=== PATIENT | female | born 1950 | race Caucasian/White ===

== ENCOUNTER 2018-12-20 15:01 | Inpatient (IN) ==
[2018-12-20] MEDS ORDERED: Morphine Inj 4 MG/ML Vial IV.PUSH ONE (15:27)
--- NOTE | 2018-12-20 15:41 | ED ---
HPI General Chief Complaint: Abdominal Pain Stated Complaint: ABD Pain Time Seen by Provider: 12/20/18 15:23 Source: patient Mode of arrival: ambulatory Limitations: no limitations History of Present Illness HPI narrative: patient is a [facility] patient for her advanced chf. patinet c/o abd pain and wants to get evaluated for it, described as diffuse abd , 8/10, nonrad, ongoing for 3 days and not improving. patient also c/o sob/and worsening swelling to nadir LE and abdomen. patient also has an indwelling walton in place. Primary CARE Dr. 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 Joaquin [facility] Cardiothoracic surgeon Dr. Duvall Past medical history significant for AAA hypertension CHF COPD and renal failure MD complaint: Reports abdominal pain Onset (ago): day(s) Pain Consistency: constant Location: Reports diffuse Severity: moderate Severity scale (1-10): 8 Quality: Reports sharp Radiation: Reports none Migration to: Reports no migration Relieving factors: nothing Exacerbating factors: nothing Associated symptoms: Reports denies other symptoms Related Data Allergies Allergy/AdvReac Type Severity Reaction Status Date / Time penicillin G Allergy Severe THROAT Unverified 06/20/17 14:54 CLOSES Review of Systems ROS: all other systems reviewed are negative [facility] Medical History Medical History CHF (congestive heart failure) (Acute) COPD (chronic obstructive pulmonary disease) (Acute) HTN (hypertension) (Acute) Renal failure (Acute) Surgical History Surgical History H/O tubal ligation (Acute) Social History Social History Substance History: No History of Abuse Second Hand Smoke Exposure: No Smoking Status: Former smoker Tobacco Type: Cigarettes How Often Do You Have a Drink Containing Alcohol: Never Recent Travel in [facility] within the Last 8 Weeks: No Recent Out of Country Travel within the Last 8 Weeks: No Immunization History Tetanus Immunization: <[address] [facility] Head: normocephalic and atraumatic Nose: no nasal discharge and no epistaxis Mouth: moist mucous membranes Eyes Sclera: normal sclerae Pupils: PERRL Neck Neck: trachea midline and no JVD Resp Effort & Inspection: able to speak in complete sentences, tachypneic and no use of accessory muscles Auscultation: crackles (bibasilarly approx [address] lung blanco) bilaterally Cardio Jugular venous pressure: JVD Rate: tachycardic Rhythm: regular rhythm Heart Sounds: no murmurs GI Inspection: non-distended Palpation: soft, no hepatosplenomegaly and nontender Skin General: dry skin (warm) Neuro General: alert and awake Cranial Nerves: other Speech: speech normal Motor: no movement abnormalities noted Extrem General: normal to inspection, no clubbing, no cyanosis and edema (pitting edema extending up to abdomen) Laterality: bilaterally Psych Mood: congruent mood Affect: normal affect Judgment: judgment good Course Initial Documented Vital Signs Temperature 98.4 F 12/20/18 15:11 Pulse Rate 112 H 12/20/18 15:11 Respiratory Rate 36 H 12/20/18 15:11 Blood Pressure 175/106 H 12/20/18 15:11 Last Documented Vital Signs Temperature 98.4 F 12/20/18 15:11 Pulse Rate 112 H 12/20/18 15:11 Respiratory Rate 36 H 12/20/18 15:11 Blood Pressure 175/106 H 12/20/18 15:11 Medical Decision Making MDM Narrative Medical decision making narrative: Although patient is on hospice, the patient does not have any DO NOT RESUSCITATE orders in place. As a matter of fact when point-blank asked if her heart stops or refers she stops breathing what she would like us to do patient stated that she wants full resuscitation performed that includes chest compressions intubation providing ACLS drugs etc. So according to this the patient is CODE STATUS is full The patient has been advised, that her AAA has increased in size by 3 cm over the past 2 years. Leukocytosis of 13,000 with a 90% neutrophilia, no anemia normal platelet count Coagulation profile is within normal limits Hyperglycemia of 204 Normal electrolytes. Prerenal azotemia with a BUN of 30 creatinine 1.96.... Normal lipase GFR of 58 Beta natruretic peptide 810 Troponin elevation of 0.24 consistent with likely cardiomyopathy UA consistent with a UTI CT abdomen and pelvis study read by radiologist few scattered sigmoid diverticula without radiographic evidence of diverticulitis. Probable panniculitis but stable fat-containing periumbilical hernias. A 3 mm increase in size of infrarenal saccular AAA when compared to July 2017 now measuring 4.7 cm Medical Screen Exam Complete: Yes Emergency Medical Condition: Yes Lab Data Result diagrams: 12/20/18 15:40 12/20/18 15:40 Lab Results 12/20/18 12/20/18 12/20/18 Range/Units 15:40 15:40 15:40 WBC 13.0 H (4.0-11.0) th/mm3 RBC 4.93 (4.00-5.30) mil/mm3 Hgb 13.3 (11.6-15.3) gm/dL Hct 41.8 (35.0-46.0) % MCV 85.0 (80.0-100.0) fL MCH 26.9 L (27.0-34.0) pg MCHC 31.7 L (32.0-36.0) % RDW 22.2 H (11.6-17.2) % Plt Count 194 (150-450) th/mm3 MPV 7.4 (7.0-11.0) fL Prelim Diff (Auto) Slide review pending Neut % (Auto) 89.6 H (16.0-70.0) % Lymph % (Auto) 5.5 L (9.0-44.0) % Cocke % (Auto) 4.1 (0.0-8.0) % Eos % (Auto) 0.5 (0.0-4.0) % Baso % (Auto) 0.3 (0.0-2.0) % Neut # (Auto) 11.7 H (1.8-7.7) th/mm3 Lymph # (Auto) 0.7 L (1.0-4.8) th/mm3 Cocke # (Auto) 0.5 (0.0-0.9) th/mm3 Eos # (Auto) 0.1 (0.0-0.4) th/mm3 Baso # (Auto) 0.0 (0.0-0.2) th/mm3 WBC Differential Manual diff final Seg Neuts % (Manual) 86 H (16-70) % Band Neuts % (Manual) 3 (0-6) % Lymphocytes % (Manual) 7 L (9-44) % Monocytes % (Manual) 3 (0-8) % Metamyelocytes % (Man) 1 (0-1) % Abs Neuts (Manual) 11.7 H (1.8-7.7) th/mm3 Nucleated RBCs/100 WBC 1 H (0-0) /100 WBC Differential Comment . Toxic Granulation 1+ H (None) Platelet Estimate Normal (Normal) Platelet Morphology Normal (Normal) Basophilic Stippling Faint H (None) Spherocytes Occ H (None) Ovalocytes 1+ H (None) Keratocytes Occ H (None) PT (9.8-11.6) sec INR Ratio APTT (23.4-31.7) sec Sodium 141 (136-145) meq/L Potassium 4.1 (3.5-5.1) meq/L Chloride 101 (98-107) meq/L Carbon Dioxide 35.0 H (21.0-32.0) meq/L Anion Gap 5 (5-15) meq/L BUN 30 H (7-18) mg/dL Creatinine 0.96 (0.50-1.00) mg/dL Estimated GFR 58 L (>89) mL/min Random Glucose 204 H (74-106) mg/dL Calcium 7.7 L (8.5-10.1) mg/dL Total Bilirubin 0.5 (0.2-1.0) mg/dL AST 29 (15-37) U/L ALT 41 (10-53) U/L Alkaline Phosphatase 84 (45-117) U/L Troponin I 0.24 H (0.02-0.05) ng/mL B-Natriuretic Peptide (0-100) pg/mL Total Protein 6.2 L (6.4-8.2) g/dL Albumin 3.0 L (3.4-5.0) g/dL Lipase 150 (73-393) U/L Urine Color Brittaney (Yellw/Straw) Urine Clarity Cloudy H (Clear) Urine pH 6.0 (5.0-8.5) Ur Specific [place] 1.019 (1.002-1.035) Urine Protein 100 H (Neg-Trace) mg/dL Urine Glucose (UA) Negative (Negative) mg/dL Urine Ketones Negative (Negative) mg/dL Urine Occult Blood Large H (Negative) Urine Nitrate Negative (Negative) Urine Bilirubin Negative (Negative) Urine Urobilinogen 2.0 H (Less than 2) mg/dL Ur Leukocyte Esterase Large H (Negative) Urine RBC (0-3) /hpf Urine WBC (0-5) /hpf Urine WBC Clumps Many H (None) Ur Squamous Epith Cells 1 (0-5) /hpf Urine Bacteria Few H (None) /hpf Urine Mucus Few H (Occasional) /lpf Micro UA Comment Cath-culture ind Ur Microscopic Review Not Reportable Urine Culture Comments Cath-cult indicated 12/20/18 12/20/18 Range/Units 16:35 16:35 WBC (4.0-11.0) th/mm3 RBC (4.00-5.30) mil/mm3 Hgb (11.6-15.3) gm/dL Hct (35.0-46.0) % MCV (80.0-100.0) fL MCH (27.0-34.0) pg MCHC (32.0-36.0) % RDW (11.6-17.2) % Plt Count (150-450) th/mm3 MPV (7.0-11.0) fL Prelim Diff (Auto) Neut % (Auto) (16.0-70.0) % Lymph % (Auto) (9.0-44.0) % Cocke % (Auto) (0.0-8.0) % Eos % (Auto) (0.0-4.0) % Baso % (Auto) (0.0-2.0) % Neut # (Auto) (1.8-7.7) th/mm3 Lymph # (Auto) (1.0-4.8) th/mm3 Cocke # (Auto) (0.0-0.9) th/mm3 Eos # (Auto) (0.0-0.4) th/mm3 Baso # (Auto) (0.0-0.2) th/mm3 WBC Differential Seg Neuts % (Manual) (16-70) % Band Neuts % (Manual) (0-6) % Lymphocytes % (Manual) (9-44) % Monocytes % (Manual) (0-8) % Metamyelocytes % (Man) (0-1) % Abs Neuts (Manual) (1.8-7.7) th/mm3 Nucleated RBCs/100 WBC (0-0) /100 WBC Differential Comment Toxic Granulation (None) Platelet Estimate (Normal) Platelet Morphology (Normal) Basophilic Stippling (None) Spherocytes (None) Ovalocytes (None) Keratocytes (None) PT 10.7 (9.8-11.6) sec INR 1.1 Ratio APTT 24.4 (23.4-31.7) sec Sodium (136-145) meq/L Potassium (3.5-5.1) meq/L Chloride (98-107) meq/L Carbon Dioxide (21.0-32.0) meq/L Anion Gap (5-15) meq/L BUN (7-18) mg/dL Creatinine (0.50-1.00) mg/dL Estimated GFR (>89) mL/min Random Glucose (74-106) mg/dL Calcium (8.5-10.1) mg/dL Total Bilirubin (0.2-1.0) mg/dL AST (15-37) U/L ALT (10-53) U/L Alkaline Phosphatase (45-117) U/L Troponin I (0.02-0.05) ng/mL B-Natriuretic Peptide 810 H (0-100) pg/mL Total Protein (6.4-8.2) g/dL Albumin (3.4-5.0) g/dL Lipase (73-393) U/L Urine Color (Yellw/Straw) Urine Clarity (Clear) Urine pH (5.0-8.5) Ur Specific [place] (1.002-1.035) Urine Protein (Neg-Trace) mg/dL Urine Glucose (UA) (Negative) mg/dL Urine Ketones (Negative) mg/dL Urine Occult Blood (Negative) Urine Nitrate (Negative) Urine Bilirubin (Negative) Urine Urobilinogen (Less than 2) mg/dL Ur Leukocyte Esterase (Negative) Urine RBC (0-3) /hpf Urine WBC (0-5) /hpf Urine WBC Clumps (None) Ur Squamous Epith Cells (0-5) /hpf Urine Bacteria (None) /hpf Urine Mucus (Occasional) /lpf Micro UA Comment Ur Microscopic Review Urine Culture Comments Imaging Data Radiologist's impression: Abdomen/Pelvis CT 12/20/18 15:27 CONCLUSION: 1. 3 mm increase in the size of the infrarenal saccular abdominal aortic aneurysm when compared to July 2017, now measuring 4.7 cm in AP dimension. 2. Probable panniculitis. Stable fat-containing paraumbilical hernias. 3. A few scattered sigmoid diverticula without radiographic evidence of diverticulitis. Discharge Plan Discharge Disposition Patient Disposition: ED Admit(ED Internal Use Only) Discharge Condition Condition: Fair Discharge Details Diagnosis: Acute exacerbation of congestive heart failure, Acute UTI Physicians Team ED Provider: Boo Branham Primary Care Provider: Randi August Status ED Status: With Doctor
[2018-12-20 16:15] LABS: Baso % (Auto) 0.3 % (0.0-2.0); Eos # (Auto) 0.1 th/mm3 (0.0-0.4); Eos % (Auto) 0.5 % (0.0-4.0); Hematocrit 41.8 % (35.0-46.0); Hemoglobin 13.3 gm/dL (11.6-15.3); Lymph # (Auto) 0.7 th/mm3 (1.0-4.8); Lymph % (Auto) 5.5 % (9.0-44.0); Mean Corpuscular HGB Conc 31.7 % (32.0-36.0); Mean Corpuscular Hemoglobin 26.9 pg (27.0-34.0); Mean Platelet Volume 7.4 fL (7.0-11.0); Mono # (Auto) 0.5 th/mm3 (0.0-0.9); Mono % (Auto) 4.1 % (0.0-8.0); Neut # (Auto) 11.7 th/mm3 (1.8-7.7); Neut % (Auto) 89.6 % (16.0-70.0); Platelet Count 194 th/mm3 (150-450); Red Blood Count 4.93 mil/mm3 (4.00-5.30); Red Cell Distribution Width 22.2 % (11.6-17.2)
--- NOTE | 2018-12-20 16:21 | CT ---
EXAM DATE: 12/20/2018 4:11 PM EST AGE/SEX: 68 years / Female INDICATIONS: Abdominal pain. CLINICAL DATA: This is the patient's initial encounter. Patient reports that signs and symptoms have been present for 1 day and indicates a pain score of 7/10. MEDICAL/SURGICAL HISTORY: Congestive heart failure. Chronic obstructive pulmonary disease. Hy pertension. Renal failure. Tubal ligation. RADIATION DOSE: 26.67 CTDI (mGy) ; Patient body habitus COMPARISON: TLI, CTA ABDOMEN AND PELVIS, 08/03/2017. . TECHNIQUE: Multiple contiguous axial images were obtained through the abdomen. Images were obtained using multiple row detector helical technique. Using automated exposure control and adjustment of the mA and/or kV according to patient size, radiation dose was kept as low as reasonably achievable to o btain optimal diagnostic quality images. DICOM format image data is available electronically for rev iew and comparison. FINDINGS: Lower Lungs: The visualized lower lungs are clear. Bilateral fat-containing Bochdalek hernias, stable from prior. Liver: The liver has a homogeneous density without space-occupying lesion for noncontrast technique. There is no dilation of the biliary tree. No calcified gallstones. Spleen: Homogeneous density without enlargement. Pancreas: Unremarkable without mass or calcification. Kidneys: Normal in size and shape. No evidence of mass or hydronephrosis. Adrenal Glands: Unremarkable. Aorta: Infrarenal abdominal aortic aneurysm measures 4.7 cm in AP dimension; this aneurysm measured 4.4 cm in July 2017. Bowel/Mesentery: No dilated loops of small or large bowel. A few small sigmoid diverticula without r adiographic evidence of diverticulitis. No evidence of free fluid. Abdominal Wall: Bilateral fat-containing paraumbilical hernias, left greater than right, stable in s ize and appearance compared to prior CTA in 2017. There is induration of the fat of the lower anterio r abdominal and pelvic panniculus. Retroperitoneum: No evidence of adenopathy in the retrocrural, para-aortic, or deep pelvic regions. Bladder: Clements catheter in a nondistended urinary bladder. Reproductive Organs: No abnormal masses or calcifications seen. Inguinal: The inguinal region is unremarkable without evidence of adenopathy. Bony Structures: Unremarkable. CONCLUSION: 1. 3 mm increase in the size of the infrarenal saccular abdominal aortic aneurysm when compared to S eptember 2017, now measuring 4.7 cm in AP dimension. 2. Probable panniculitis. Stable fat-containing paraumbilical hernias. 3. A few scattered sigmoid diverticula without radiographic evidence of diverticulitis. Electronically signed by: Stephane Calvert MD Board Certified Radiologist 12/20/2018 4:20 PM EST
[2018-12-20 16:30] LABS: Alkaline Phosphatase 84 U/L (45-117); Total Protein 6.2 g/dL (6.4-8.2); Troponin I 0.24 ng/mL (0.02-0.05)
[2018-12-20 16:50] LABS: Bacteria,Urine Few /hpf; Bilirubin,Urine Negative (Negative); Clarity,Urine Cloudy (Clear); Color,Urine Amber (Yellw/Straw); Glucose,Urine (UA) Negative (Negative); Leukocyte Esterase,Urine Large (Negative); Mucus,Urine Few /lpf (Occasional); Nitrite,Urine Negative (Negative); Specific Gravity,Urine 1.019 (1.002-1.035); Squamous Epithelial Cell,Urine 1 /hpf (0-5)
[2018-12-20 16:56] LABS: Activated Partial Thrombo Time 24.4 sec (23.4-31.7); INR 1.1 Ratio; Prothrombin Time 10.7 sec (9.8-11.6)
[2018-12-20 17:01] LABS: Lymphocytes 7 % (9-44); Metamyelocytes 1 % (0-1); Monocytes 3 % (0-8); Tallied Nucleated RBC 1 (0-0)
[2018-12-20 17:02] LABS: Platelet Estimate Normal (Normal); Platelet Morphology Normal (Normal); Toxic Granulation 1+
[2018-12-20 17:03] LABS: Alanine Aminotransferase 41 U/L (10-53); Anion Gap 5 meq/L (5-15); Blood Urea Nitrogen 30 mg/dL (7-18); Calcium 7.7 mg/dL (8.5-10.1); Chloride 101 meq/L (98-107); Glomerular Filtration Rate 58 mL/min (>89); Glucose,Random 204 mg/dL (74-106); Lipase 150 U/L (73-393); Ovalocytes 1+; Sodium 141 meq/L (136-145); Spherocytes Occ
[2018-12-20 17:10] LABS: Aspartate Aminotransferase 29 U/L (15-37); Potassium 4.1 meq/L (3.5-5.1)
[2018-12-20] MEDS ORDERED: Levofloxacin 250 mg Premix Inj 250 MG/50 ML PIGGYBACK IV.SIG ONE (17:33)
[2018-12-20] MEDS ORDERED: Bisacodyl 10 MG Supp RECTAL PRN (20:16)
[2018-12-20] MEDS ORDERED: Acetaminophen 325 MG Tablet PO PRN (20:16)
[2018-12-20] MEDS ORDERED: Heparin - SQ 10,000 UNITS/ML Vial SQ SCH (20:30)
--- NOTE | 2018-12-20 20:30 | P.HPIM ---
History of Present Illness Primary Care Physician: Randi August MD 68-year-old female with a past medical history significant for CHF, COPD on home oxygen between 3 and 3-1/2 L, coronary artery disease, atrial fibrillation anticoagulated on Eliquis, AAA, hypertension, hyperlipidemia and depression/ anxiety presents to the emergency department for shortness of breath. The patient reports that for the past 3 days she has had increasing lower extremity edema with accompanying shortness of breath. She describes a chest "ache" that is substernal and radiates around to her left breast. She denies any cough. No fever/chills. No abdominal pain. No nausea/vomiting/diarrhea. No focal neurologic deficits. Review of Systems Review of Systems: all other systems reviewed are negative [facility] Medical History Medical History AAA (abdominal aortic aneurysm) (Acute) Atrial fibrillation (Acute) CHF (congestive heart failure) (Acute) COPD (chronic obstructive pulmonary disease) (Acute) Depression with anxiety (Acute) HTN (hypertension) (Acute) Hyperlipidemia (Acute) Renal failure (Acute) Surgical History Surgical History H/O tubal ligation (Acute) Family History Family History Other Coronary artery disease Diabetes mellitus Social History Social History Substance History: No History of Abuse Second Hand Smoke Exposure: No Smoking Status: Former smoker Tobacco Type: Cigarettes How Often Do You Have a Drink Containing Alcohol: Never Recent Travel in [facility] within the Last 8 Weeks: No Recent Out of Country Travel within the Last 8 Weeks: No Immunization History Tetanus Immunization: <5 Years Medications and Allergies Allergies Allergy/AdvReac Type Severity Reaction Status Date / Time penicillin G Allergy Severe THROAT Verified 12/20/18 18:17 CLOSES Home Medications Medication Instructions Recorded Confirmed Type albuterol sulfate 4 mg PO Q12H 12/20/18 12/20/18 History apixaban [Eliquis] 5 mg PO BID 12/20/18 12/20/18 History furosemide 20 mg PO DAILY 12/20/18 12/20/18 History Active Medications: Active Medications Acetaminophen (Tylenol) 650 mg PO Q4H PRN PRN Reason: Temp > 100.4 Al Hydroxide/Mg Hydroxide (Milk Of Magnesia Liq) 30 ml PO Q12H PRN PRN Reason: Mild Constipation Apixaban (Eliquis) 5 mg PO BID JODI Bisacodyl (Dulcolax Supp) 10 mg RECTAL DAILY PRN PRN Reason: SEVERE CONSITIPATION Furosemide (Lasix Inj) 40 mg IV.PUSH BID@0900,1800 JODI Lactulose (Lactulose Liq) 30 ml PO DAILY PRN PRN Reason: SEVERE CONSITIPATION Ondansetron HCl (Zofran Inj) 4 mg IV.PUSH Q6H PRN PRN Reason: NAUSEA OR VOMITING Senna/Docusate Sodium (Stacie-Colace) 1 tab PO BID JODI Sennosides (Senokot) 17.2 mg PO Q12H PRN PRN Reason: Moderate Constipation Sodium Chloride (Ns Flush) 2 ml IV.FLUSH BID JODI Sodium Chloride (Ns Flush) 2 ml IV.FLUSH PRN PRN PRN Reason: FLUSH AFTER USING IV ACCESS Physical Exam Vital signs: Vital Signs 12/20/18 15:11 12/20/18 19:11 Temperature 98.4 F Pulse Rate 112 H 107 H Respiratory Rate 36 H 17 Blood Pressure 175/106 H 154/87 H Pulse Oximetry 96 Intake & Output 12/20/18 12/20/18 12/21/18 06:59 18:59 06:59 Intake Total 50 / 50 Balance 50 / 50 Weight 112.491 kg Intake: IV 50 / 50 Levaquin 250 mg Premix Inj 250 50 / 50 mg In 50 ml @ 50 mls/hr IV.SIG ONCE ONE Rx#:[id number] Narrative: Gen.: No acute distress Head: Normocephalic. Atraumatic. EENT: Pupils equal round and reactive to light. Nose without drainage. Airway intact. Throat without injection. Cardiovascular: Regular rate and irregularly irregular rhythm. No murmurs, rubs or gallops. Respiratory: Lungs clear to auscultation bilaterally. No wheezes or rhonchi. Abdomen: Soft, nontender, nondistended. No peritoneal signs. Musculoskeletal: No gross deformities. No edema. Skin: No obvious rashes or erythema. Neuro: Sensory and motor grossly intact. Cranial nerves II through XII grossly intact. Results Labs CBC & Chem 7: 12/20/18 15:40 12/20/18 15:40 Imaging Impressions Abdomen/Pelvis CT 12/20/18 15:27 CONCLUSION: 1. 3 mm increase in the size of the infrarenal saccular abdominal aortic aneurysm when compared to July 2017, now measuring 4.7 cm in AP dimension. 2. Probable panniculitis. Stable fat-containing paraumbilical hernias. 3. A few scattered sigmoid diverticula without radiographic evidence of diverticulitis. Caprini VTE Risk Assessment Caprini VTE Risk Assessment: Moderate/High Risk (score >= 2) Caprini Risk Assessment Model: Point Value = 1 Point Value = 2 Point Value = 3 Point Value = 5 Age 41-60 Minor surgery BMI > 25 kg/m2 Swollen legs Varicose veins or History of unexplained or recurrent spontaneous Oral contraceptives or hormone replacement Sepsis (< 1 month) Serious lung disease, including pneumonia (< 1 month) Abnormal pulmonary function Acute myocardial infarction Congestive heart failure (< 1 month) History of inflammatory bowel disease Medical patient at bed rest Age 61-74 Arthroscopic surgery Major open surgery (> 45 min) Laparoscopic surgery (> 45 min) Malignancy Confined to bed (> 72 hours) Immobilizing plaster cast Central venous access Age >= 75 History of VTE Family history of VTE Factor V Leiden Prothrombin [id number] Lupus anticoagulant Anticardiolipin antibodies Elevated serum homocysteine Heparin-induced thrombocytopenia Other congenital or acquired thrombophilia Stroke (< 1 month) Elective arthroplasty Hip, pelvis, or leg fracture Acute spinal cord injury (< 1 month) Prophylaxis Regimen: Total Risk Factor Score Risk Level Prophylaxis Regimen 0-1 Low Early ambulation 2 Moderate Order ONE of the following: *Sequential Compression Device (SCD) *Heparin 5000 units SQ BID 3-4 Higher Order ONE of the following medications: *Heparin 5000 units SQ TID *Enoxaparin/Lovenox 40 mg SQ daily (WT < 150 kg, CrCl > 30 mL/min) *Enoxaparin/Lovenox 30 mg SQ daily (WT < 150 kg, CrCl > 10-29 mL/min) *Enoxaparin/Lovenox 30 mg SQ BID (WT < 150 kg, CrCl > 30 mL/min) AND/OR *Sequential Compression Device (SCD) 5 or more Highest Order ONE of the following medications: *Heparin 5000 units SQ TID (Preferred with Epidurals) *Enoxaparin/Lovenox 40 mg SQ daily (WT < 150 kg, CrCl > 30 mL/min) *Enoxaparin/Lovenox 30 mg SQ daily (WT < 150 kg, CrCl > 10-29 mL/min) *Enoxaparin/Lovenox 30 mg SQ BID (WT < 150 kg, CrCl > 30 mL/min) AND *Sequential Compression Device (SCD) Assessment and Plan Plan Assessment/plan: 1. CHF exacerbation BNP 810 with shortness of breath and bilateral lower extremity edema IV Lasix Monitor renal function Harness Installer is Dr. Nuñez 2. Chest pain/elevated troponin Troponin 0.24 EKG without signs of ischemia, personally reviewed ACS rule out pending; serial troponins/EKGs Likely secondary to heart failure 3. Atrial fibrillation Continue anticoagulation with Eliquis Resume home medications once reconciled 4. COPD Patient stable on home oxygen Monitor 5. Coronary artery disease/hypertension/hyperlipidemia Resume home medications once reconciled 6. Depression/anxiety Resume home medications once reconciled FEN N.p.o. Electrolytes: Monitor and replete as needed Eliquis
[2018-12-20] MEDS: Senna/Docusate Sodium 8.6/50 MG Tablet PO SCH (21:39)
[2018-12-20 22:42] LABS: Troponin I 0.19 ng/mL (0.02-0.05)
[2018-12-21 05:05] LABS: Calcium 8.6 mg/dL (8.5-10.1); Carbon Dioxide 36.4 meq/L (21.0-32.0); Potassium 3.7 meq/L (3.5-5.1)
[2018-12-21 05:10] LABS: Troponin I 0.28 ng/mL (0.02-0.05)
[2018-12-21 07:37] LABS: Baso % (Auto) 0.1 % (0.0-2.0); Eos # (Auto) 0.1 th/mm3 (0.0-0.4); Hemoglobin 14.6 gm/dL (11.6-15.3); Lymph % (Auto) 8.6 % (9.0-44.0); Mean Corpuscular HGB Conc 31.8 % (32.0-36.0); Mean Corpuscular Hemoglobin 27.6 pg (27.0-34.0); Mean Corpuscular Volume 86.8 fL (80.0-100.0); Mean Platelet Volume 7.4 fL (7.0-11.0); Mono # (Auto) 0.6 th/mm3 (0.0-0.9); Mono % (Auto) 5.2 % (0.0-8.0); Neut # (Auto) 9.9 th/mm3 (1.8-7.7); Neut % (Auto) 85.1 % (16.0-70.0); Platelet Count 179 th/mm3 (150-450); Red Cell Distribution Width 22.4 % (11.6-17.2); White Blood Count 11.6 th/mm3 (4.0-11.0)
[2018-12-21 08:31] LABS: Lymphocytes 8 % (9-44); Monocytes 6 % (0-8); Myelocytes 3 % (0-0)
[2018-12-21 08:32] LABS: Platelet Estimate Normal (Normal); Platelet Morphology Normal (Normal)
[2018-12-21] MEDS: Senna/Docusate Sodium 8.6/50 MG Tablet PO SCH ×2 (08:44→21:22)
--- NOTE | 2018-12-21 10:30 | P.PNIM ---
Subjective Interval history: Follow-up visit, shortness of breath, CHF exacerbation, afib with RVR Patient is resting in bed. She reports slight improvement in her shortness of breath since time of admission. Bilateral lower extremity swelling with weeping. Patient had a fluid blister to her right lower extremity that opened and drained. She states she was on [facility] at home but would like to change to [facility] at time of discharge. Patient denies chest pain, palpitations, cough, fevers or chills. Physical Exam Vital signs: Vital Signs 12/20/18 15:11 12/20/18 19:11 12/20/18 21:16 Temperature 98.4 F 97.8 F Pulse Rate 112 H 107 H 100 H Respiratory Rate 36 H 17 18 Blood Pressure 175/106 H 154/87 H 137/80 Pulse Oximetry 96 92 L 12/20/18 21:25 12/20/18 22:00 12/20/18 23:23 Temperature 98.1 F Pulse Rate 102 H 111 H Respiratory Rate 16 Blood Pressure 157/93 H Pulse Oximetry 95 95 12/21/18 03:40 12/21/18 08:00 12/21/18 08:27 Temperature 97.6 F 98.7 F Pulse Rate 107 H 102 H Respiratory Rate 18 16 Blood Pressure 131/85 135/95 H Pulse Oximetry 97 89 L 97 Intake & Output 12/20/18 12/21/18 12/21/18 18:59 06:59 18:59 Intake Total 50 / 50 Output Total 750 / 750 Balance -700 / -700 Weight 112.491 kg 117 kg Intake: IV 50 / 50 Levaquin 250 mg Premix Inj 250 50 / 50 mg In 50 ml @ 50 mls/hr IV.SIG ONCE ONE Rx#:[id number] Oral 0 / 0 Output: Urine Amount (Catheter) 750 / 750 Indwelling Urethral Catheter 750 / 750 Other: Date of Last Bowel Movement 12/20/18 Weight On Admission 112.491 kg Narrative: Gen.: well developed, well nourished, no acute distress Head: Normocephalic. Atraumatic. EENT: Pupils equal round and reactive to light. Nose without drainage. Airway intact. Cardiovascular: Irregularly irregular rate and rhythm Respiratory: Lungs diminished to auscultation bilaterally. No wheezes or rhonchi. Abdomen: Soft, nontender, nondistended. Musculoskeletal: No gross deformities. Bilateral lower extremity 2-3+ edema with weeping. Skin: Chronic venous insufficiency of bilateral lower extremities. RLE with open skin area secondary to blister that has now drained. Neuro: Sensory and motor grossly intact. Cranial nerves II through XII grossly intact. Urinary Catheter Management Indwelling Urethral Catheter: Cath placed during this visit: no Reason for continuing: Other continuation reason Results Labs CBC & Chem 7: 12/21/18 06:30 12/21/18 03:20 Imaging Imaging: Impressions Abdomen/Pelvis CT 12/20/18 15:27 CONCLUSION: 1. 3 mm increase in the size of the infrarenal saccular abdominal aortic aneurysm when compared to July 2017, now measuring 4.7 cm in AP dimension. 2. Probable panniculitis. Stable fat-containing paraumbilical hernias. 3. A few scattered sigmoid diverticula without radiographic evidence of diverticulitis. Assessment and Plan Plan 68-year-old female with a past medical history significant for CHF, COPD on home oxygen between 3 and 3-1/2 L, coronary artery disease, atrial fibrillation anticoagulated on Eliquis, AAA, hypertension, hyperlipidemia and depression/ anxiety presents to the emergency department for shortness of breath. The patient reports that for the past 3 days she has had increasing lower extremity edema with accompanying shortness of breath. CHF exacerbation -BNP 810 with shortness of breath and bilateral lower extremity edema -continue IV Lasix BID -monitor electrolytes and renal function closely -Emissions Engineer is Dr. Nuñez and consult has been placed Chest pain/elevated troponin -denies chest pain -patient with chronic troponin elevation -EKG shows a-fib with RVR -ACS rule out; serial troponins/EKGs -likely elevated secondary to heart failure Atrial fibrillation, HR 100's but improved into the 70's -Continue anticoagulation with Eliquis -resumed home medications COPD, no acute exacerbation -stable on home oxygen -Monitor Coronary artery disease/hypertension/hyperlipidemia -Resume home medications Depression/anxiety -Resume home medications MDM: home Code: Full GI ppx: PO intake DVT ppx: Eliquis Discussed with: supervising MD, patient, RN Dispo: Home with hospice Progress Note: Quality VTE Deep Vein Thrombosis/Pulmonary Embolism Present on Admission: No
[2018-12-21] MEDS: Lisinopril 5 MG Tablet PO SCH (11:44)
[2018-12-21] MEDS: Carvedilol 12.5 MG Tablet PO SCH ×2 (11:44→21:22)
--- NOTE | 2018-12-21 15:31 | ECG ---
Date Performed: 12/20/2018 Time Performed: 21:11:32 PTAGE: 68 years EKG: ATRIAL FIBRILLATION WITH RAPID VENTRICULAR RESPONSE ST DEVIATION AND MODERATE T-WAVE ABNORM ALITY, CONSIDER LATERAL ISCHEMIA ABNORMAL ECG Compared to PREVIOUS TRACING , the atrial fibrillation with rapid ventricular response is new. There has been a slight increase in the nonspecific ST-T wave changes, but no other significant serial turner ge. PREVIOUS TRACIN06/15/2016 09.49 DOCTOR: Caridad Rosales Interpretating Date/Time 12/21/2018 15:31:04
--- NOTE | 2018-12-21 15:32 | ECG ---
Date Performed: 12/21/2018 Time Performed: 03:25:35 PTAGE: 68 years EKG: ATRIAL FIBRILLATION WITH RAPID VENTRICULAR RESPONSE MODERATE T-WAVE ABNORMALITY, CONSIDER L ATERAL ISCHEMIA ABNORMAL ECG Compared to PREVIOUS TRACING , there has been no significant serial change. PREVIOUS TRACIN 019 21.11 DOCTOR: Caridad Rosales Interpretating Date/Time 12/21/2018 15:31:29
--- NOTE | 2018-12-21 20:31 | P.PNADD ---
Addendum to Inpatient Note Reason for Addendum: Additional Documentation (I reviewed the below documentation. - Melecio Champion) Additional information: She is a 68-year-old female admitted with CHF exacerbation with a history of COPD and is on 3 L of home oxygen. She also has a history of CAD, A. fib on Eliquis, AAA, hypertension, hyperlipidemia, depression/anxiety. Dejah was called due to shortness of breath and increasing oxygen requirement. Bedside nurse states that she arrived on the floor on 2 L of oxygen and became short of breath. Her vitals at that time included as RR of 49 and O2 sat of 76. they then increased her oxygen to 5 L and her breathing improved. We arrived at the bedside to find her in the following state: Vitals: Temp 98.3, BP 121/70, heart rate 121, respiratory rate 24, O2 sat 94 General: Obese, increased work of breathing ENT: Atraumatic, MMM Neck: Trachea midline Respiratory: Mild tachypnea and increased work of breathing. Bilateral wheezes to the upper lungs and decreased breath sounds in the lung bases. Cardiovascular: Tachycardic with irregular rhythm, no murmur appreciated. 3+ pitting edema to bilateral lower extremity with weeping. Abdomen: Bowel sounds present. Soft, mild tenderness to palpation. Neuro/psych: Alert and oriented x3. Normal affect. Assessment and plan: She is a 68-year-old female with CHF exacerbation and COPD who was having difficulty breathing. She was very tachypneic with significant desaturation, however this improved upon increasing her oxygen. She is on a [facility] floor and is currently stable at this level. Significant improvement upon oxygen increase, but still has increased work of breathing. CXR and VBG ordered Additional dose of 40 of IV Lasix given Duo nebs as needed every 4 hours She is due for a dose of carvedilol soon, so I will not add anything to control her heart rate more at this time
--- NOTE | 2018-12-21 21:05 | XR ---
EXAM DATE: 12/21/2018 8:59 PM EST AGE/SEX: 68 years / Female INDICATIONS: Shortness of breath. CLINICAL DATA: This is the patient's initial encounter. Patient reports that signs and symptoms have been present for 1 day and indicates a pain score of 0/10. MEDICAL/SURGICAL HISTORY: . Congestive heart failure. Chronic obstructive pulmonary disease. Hy pertension. Renal failure. Tubal ligation. . COMPARISON: [facility], CHEST PA & LAT, 06/14/2016. . FINDINGS: The heart size is enlarged. There is diffuse increased interstitial markings. The costophrenic angles are grossly clear. CONCLUSION: Diffuse increased interstitial markings. These are unchanged from the prior exam. This could represen t underlying chronic interstitial disease versus recurrent edema. Electronically signed by: Caleb Shaver MD Board Certified Radiologist 12/21/2018 9:03 PM EST
[2018-12-22] MEDS: Carvedilol 12.5 MG Tablet PO SCH ×2 (09:11→20:41)
[2018-12-22] MEDS: Lisinopril 5 MG Tablet PO SCH (09:11)
[2018-12-22] MEDS: Senna/Docusate Sodium 8.6/50 MG Tablet PO SCH ×2 (09:11→20:42)
--- NOTE | 2018-12-22 16:07 | P.PNIM ---
Subjective Interval history: 68yo f admitted with acute chf exacerbation and afib w rvr pt seen and examined doing fair still w sob and le edema though much better co wound right lateral leg draining denies cp, no sob, still some dry cough patient states apolinar was placed at home and its very painful and hendrickson and she think something wrong with it. Physical Exam Vital signs: Vital Signs 12/21/18 17:08 12/21/18 19:35 12/21/18 19:47 Temperature 98.2 F Pulse Rate 77 110 H Respiratory Rate 20 Blood Pressure 127/77 121/70 Pulse Oximetry 95 93 L 96 12/21/18 20:00 12/21/18 20:43 12/21/18 23:20 Temperature 98.4 F Pulse Rate 122 H 109 H 88 Respiratory Rate 18 20 Blood Pressure 126/88 Pulse Oximetry 97 96 12/22/18 04:00 12/22/18 07:55 12/22/18 08:00 Temperature 98.3 F 97.9 F Pulse Rate 82 51 L 102 H Respiratory Rate 20 16 Blood Pressure 104/68 107/58 L Pulse Oximetry 98 98 12/22/18 12:00 12/22/18 12:25 Temperature 98 F Pulse Rate 103 H 103 H Respiratory Rate 16 Blood Pressure 97/56 L Pulse Oximetry 97 Intake & Output 12/21/18 12/22/18 12/22/18 18:59 06:59 18:59 Intake Total 2188 / 2188 330 / 330 Output Total 1650 / 1650 2300 / 2300 Balance 538 / 538 -1970 / -1970 Weight 112.9 kg Intake: Oral 2188 / 2188 330 / 330 Output: Urine 1650 / 1650 2300 / 2300 Other: Date of Last Bowel Movement 12/20/18 12/21/18 12/21/18 # Bowel Movements 1 Narrative: chronically ill appeartin 68yo w f awake alert oriented x 3 nad heart s1s2 reg e ectopy lungs coarse rales bases god air movement abd soft nondt obese pos bs ext chronic edema w wrinkling hyperemic discoloration and large area of ulceration from blister eruption w serous drainage Urinary Catheter Management Indwelling Urethral Catheter: Cath placed during this visit: no Reason for continuing: Other continuation reason Results Labs CBC & Chem 7: 12/21/18 06:30 12/21/18 03:20 Labs: Microbiology 12/20/18 15:40 Catheterized Urine Urine Culture - Final Escherichia coli Multidrug Resistant Imaging Imaging: Impressions Chest X-Ray 12/21/18 00:00 CONCLUSION: Diffuse increased interstitial markings. These are unchanged from the prior exam. This could represent underlying chronic interstitial disease versus recurrent edema. Assessment and Plan Plan ACUTE ON CHRONIC HYPOXIC RESP FAILURE - wean oxygen as tolerated ACUTE EXACERBATION OF CHRONIC SYSTOLIC CHF - iv lasix 4omg iv bid AFIB w RVR - rate control on eliquis COPD - cont pulm tx, stable CAD - cont asa daily eliquis, coreg daily UTI - poa, ecoli MDRO - replace walton, start abx and HTN - lisinopril daily, DYLSIPIDEMIA resume statin AAA - 4.7cm - cont bb, bp control MORBID OBESITY bmi 47 - diet activity when stable DEPRESSION /ANXIETY resume home meds PANNICULITIIS - found on ct scan, no significant complaints will be on abx, WOUNDs RLE - wound care consult - dvt prophylaxis - eliquis dispo - hospice following [facility] Progress Note: Quality VTE Deep Vein Thrombosis/Pulmonary Embolism Present on Admission: No
--- NOTE | 2018-12-22 17:18 | MB ---
cc: Willie Saavedra MD DATE: 12/22/2018 REASON FOR CONSULTATION: Congestive heart failure. HISTORY OF PRESENT ILLNESS: The patient is a 68-year-old white female, followed in our office by Dr. Raghav Nuñez, with a history of chronic atrial fibrillation, apparently resolved mild cardiomyopathy, COPD, hypertension, who presented to the hospital with chest discomfort, shortness of breath, pedal edema, abdominal pain. About a week ago, she experienced 4 straight days of left upper chest discomfort described as a "funny feeling." In the last couple of weeks, she has also noted progressively worsening pedal edema and intermittent shortness of breath. She has had to sleep upright at night and has had rare episodes of paroxysmal nocturnal dyspnea. She reports compliance with her medications and no added salt diet. About a week ago while at home, she had a very brief episode of syncope. She otherwise denies dizziness, near syncope, palpitations, fevers, flu symptoms. PAST MEDICAL HISTORY: 1. Chronic atrial fibrillation. 2. Mild cardiomyopathy diagnosed 2016 with echo 09/20/2017 showing ejection fraction 40%-45%. An echo in March 2018 reportedly showed ejection fraction of 50%-55%. 3. Chronic obstructive pulmonary disease. 4. Hypertension. 5. Abdominal aortic aneurysm. The last measurement I see is 4.4 cm on 08/03/2017. She follows with Dr. Duvall. CARDIAC MEDICATIONS AT HOME: 1. Furosemide 20 mg daily. 2. Apixaban 5 mg b.i.d. ALLERGIES: PENICILLIN. FAMILY HISTORY: Noncontributory. SOCIAL HISTORY: The patient smokes cigarettes infrequently. She denies alcohol abuse. REVIEW OF SYSTEMS: As in history of present illness, otherwise negative or noncontributory. She also denies headache, abdominal pain, melena, dyspepsia, bright red blood per rectum. PHYSICAL EXAMINATION: VITAL SIGNS: Her blood pressure 97/56 with a pulse of 103, respirations 20. GENERAL: She is a well-developed, well-nourished white female, in no acute distress. NECK: Jugular venous pressure is hard to assess. Carotid pulses are 2+ bilaterally and without bruits. LUNGS: Reveals diminished breath sounds at the bases. CARDIAC: She has an irregularly irregular rhythm with a grade 2/6 systolic ejection murmur heard best at the right upper sternal border. The S2 heart sound is normal. No definite gallop is audible. ABDOMEN: She has a soft, obese, nontender abdomen. Bowel sounds are present. There is no definite hepatosplenomegaly. EXTREMITIES: Reveals no clubbing or cyanosis. There is 2-3+ pretibial edema bilaterally. LABORATORY DATA: EKG shows atrial fibrillation, nonspecific ST and T-wave abnormalities. Chest x-ray shows increased interstitial markings, although no change from 2016 chest x-ray. LABORATORY DATA: Includes WBC 11.6, hemoglobin 14.6, platelets 179, potassium 3.7, BUN 30, creatinine 1.00. Troponin 0.28. Brain natriuretic peptide level 810. IMPRESSION: Probable congestive heart failure in this 68-year-old white female with a history of chronic atrial fibrillation, reduced ejection fraction of 40%-45% by echo 2 years ago, although with subsequent echo last year showing ejection fraction 50%-55%, history of chronic obstructive pulmonary disease, hypertension. By exam, she appears to have at least mild congestive heart failure. Chest x-ray also has increased interstitial markings, although largely unchanged from 3 years ago. The precipitating factor for her congestive heart failure is not entirely clear. Her recent chest pains are extremely atypical for myocardial ischemia. Despite 4 days of constant chest discomfort, CK level is negative for myocardial infarction. Troponin levels are slightly abnormal, although this could be due to congestive heart failure. Echocardiogram is pending. RECOMMENDATIONS: 1. Agree with intravenous furosemide diuresis. 2. Continue beta giovana and THIEN inhibitor therapy. 3. Given her high thromboembolic risk continue her apixaban. 4. Await her 2D echo. 5. Consider workup for myocardial ischemia. Willie Saavedra MD GHR/ct , 03:43 PM , 03:52 PM OZZY
[2018-12-23] MEDS: Carvedilol 12.5 MG Tablet PO SCH ×2 (08:33→21:18)
[2018-12-23] MEDS: Senna/Docusate Sodium 8.6/50 MG Tablet PO SCH ×2 (08:33→21:19)
--- NOTE | 2018-12-23 08:55 | P.PNCA ---
Subjective Interval history: Dyspnea better. Feeling better overall. No CP, abdominal pain, dizziness, palpitations. Slept some. Medications and Allergies Active Medications: Active Cardiac Medications Apixaban (Eliquis) 5 mg PO BID [facility] Last Admin: 12/23/18 08:32 Dose: 5 mg Carvedilol (Coreg) 6.25 mg PO BID [facility] Last Admin: 12/23/18 08:33 Dose: 6.25 mg Furosemide (Lasix Inj) 40 mg IV.PUSH BID@0900,1800 [facility] Last Admin: 12/23/18 08:33 Dose: 40 mg Allergies Allergy/AdvReac Type Severity Reaction Status Date / Time penicillin G Allergy Severe THROAT Verified 12/20/18 18:17 CLOSES Home Medications Medication Instructions Recorded Confirmed Type albuterol sulfate 4 mg PO Q12H 12/20/18 12/20/18 History apixaban [Eliquis] 5 mg PO BID 12/20/18 12/20/18 History furosemide 20 mg PO DAILY 12/20/18 12/20/18 History Physical Exam Vital signs: Vital Signs 12/22/18 12:00 12/22/18 12:25 12/22/18 16:00 Temperature 98 F 98.2 F Pulse Rate 103 H 103 H 107 H Respiratory Rate 16 16 Blood Pressure 97/56 L 116/60 Pulse Oximetry 97 94 L 12/22/18 20:00 12/22/18 20:05 12/22/18 23:52 Temperature 97.7 F Pulse Rate 120 H 113 H Respiratory Rate 18 Blood Pressure 121/83 Pulse Oximetry 95 94 L 12/23/18 00:00 12/23/18 00:35 12/23/18 04:02 Temperature 98.0 F Pulse Rate 110 H 102 H Respiratory Rate 18 18 Blood Pressure 106/78 Pulse Oximetry 96 12/23/18 04:20 Temperature Pulse Rate 100 H Respiratory Rate 18 Blood Pressure 119/78 Pulse Oximetry 96 Intake & Output 12/22/18 12/23/18 12/23/18 18:59 06:59 18:59 Intake Total 1540 / 1540 700 / 700 Output Total 1600 / 1600 730 / 730 Balance -60 / -60 -30 / -30 Weight 113 kg Intake: IV 100 / 100 100 / 100 Azactam Inj 1,000 MG In NS Inj 100 / 100 100 / 100 100 ML @ 200 mls/hr IV.SIG Q12H JODI Rx#:[id number] Oral 1440 / 1440 600 / 600 Output: Urine 1600 / 1600 Urine Amount (Catheter) 730 / 730 Indwelling Urethral Catheter 730 / 730 Other: Date of Last Bowel Movement 12/21/18 12/22/18 12/22/18 # Bowel Movements 3 - Constitutional no acute distress - Routine Neck Exam Absent: JVD - Routine Respiratory Exam Present: decreased breath sounds - Routine Cardiovascular Exam Present: S1, S2, murmur, irregularly irregular Comments: II/ DEENA base with diminished S2. - Routine Abdominal Exam Present: soft, normoactive bowel sounds. Absent: tenderness - Routine Extremities Exam Present: edema. Absent: cyanosis, clubbing Comments: 2+ pretibial edema; chronic venous stasis changes. - Urinary Catheter Management Indwelling Urethral Catheter Cath placed during this visit: yes Reason for continuing: Hourly intake/output Insertion date: 12/22/18 Insertion time: 22:00 Results 12/21/18 06:30 12/21/18 03:20 Cardiac Enzymes 12/21/18 Range/Units 09:07 Troponin I 0.27 H (0.02-0.05) ng/mL Intake and Output 12/22/18 12/23/18 12/23/18 22:59 06:59 14:59 Intake Total 1540 / 1540 700 / 700 Output Total 1600 / 1600 730 / 730 Balance -60 / -60 -30 / -30 Intake: IV 100 / 100 100 / 100 Azactam Inj 1,000 MG In NS Inj 100 / 100 100 / 100 100 ML @ 200 mls/hr IV.SIG Q12H JODI Rx#:[id number] Oral 1440 / 1440 600 / 600 Output: Urine 1600 / 1600 Urine Amount (Catheter) 730 / 730 Indwelling Urethral Catheter 730 / 730 Other: Date of Last Bowel Movement 12/22/18 12/22/18 # Bowel Movements 3 Weight 113 kg - Imaging and Cardiology Imaging: Impressions Chest X-Ray 12/21/18 00:00 CONCLUSION: Diffuse increased interstitial markings. These are unchanged from the prior exam. This could represent underlying chronic interstitial disease versus recurrent edema. Assessment and Plan - Assessment (1) Congestive heart failure Code(s): I50.9 - Heart failure, unspecified Status: Acute Plan: Stable overnight. Good diuresis since admission. Echo pending. ? has some degree of aortic stenosis. No evidence for ACS. HR's in atrial fib slightly elevated. RECOMMEND await echo, continue IV furosemide, beta giovana. (2) Chronic atrial fibrillation Code(s): I48.2 - Chronic atrial fibrillation Status: Chronic Plan: Slightly increased HR's. Continues on apixaban. Recommend increase beta giovana dosing. (3) Atypical chest pain Code(s): R07.89 - Other chest pain Status: Acute Plan: No further atypical CP. Despite 4 days of fairly constant CP last week, CK negative for TN. (4) Hypertension Code(s): I10 - Essential (primary) hypertension Status: Chronic Plan: Stable. Normotensive. - Plan Code Status: full code Discussed Condition With: patient, at length (1) Congestive heart failure Qualifiers: Heart failure type: unspecified Heart failure chronicity: acute Qualified Code(s): I50.9 - Heart failure, unspecified (4) Hypertension Qualifiers: Hypertension type: essential hypertension Qualified Code(s): I10 - Essential (primary) hypertension
[2018-12-23 09:09] LABS: Baso % (Auto) 0.1 % (0.0-2.0); Eos # (Auto) 0.1 th/mm3 (0.0-0.4); Eos % (Auto) 0.9 % (0.0-4.0); Hemoglobin 13.4 gm/dL (11.6-15.3); Lymph # (Auto) 0.7 th/mm3 (1.0-4.8); Mean Corpuscular Hemoglobin 27.1 pg (27.0-34.0); Mean Corpuscular Volume 84.7 fL (80.0-100.0); Mean Platelet Volume 7.4 fL (7.0-11.0); Mono # (Auto) 0.5 th/mm3 (0.0-0.9); Mono % (Auto) 4.9 % (0.0-8.0); Neut # (Auto) 8.9 th/mm3 (1.8-7.7); Neut % (Auto) 87.1 % (16.0-70.0); Platelet Count 187 th/mm3 (150-450); Red Blood Count 4.96 mil/mm3 (4.00-5.30); Red Cell Distribution Width 23.3 % (11.6-17.2); White Blood Count 10.2 th/mm3 (4.0-11.0)
[2018-12-23 09:38] LABS: Calcium 7.9 mg/dL (8.5-10.1); Carbon Dioxide 38.5 meq/L (21.0-32.0)
[2018-12-23 09:41] LABS: Potassium 2.9 meq/L (3.5-5.1)
[2018-12-23 10:23] LABS: Eosinophils 3 % (0-4); Lymphocytes 6 % (9-44); Metamyelocytes 1 % (0-1); Monocytes 4 % (0-8); Myelocytes 1 % (0-0); Platelet Estimate Normal (Normal); Platelet Morphology Normal (Normal); Promyelocyte 1 % (0-0); Tallied Nucleated RBC 1 (0-0)
--- NOTE | 2018-12-23 12:25 | ECHRPT ---
Indication: HEART FAILURE CONCLUSIONS Normal left ventricular size. Mild concentric left ventricular hypertrophy. The left ventricular systolic function is severely reduced with an estimated ejection fraction in th e range of 25-30%. Mild mitral valve regurgitation. Moderate mitral annular calcification. Aortic valve sclerosis is present. No aortic valve regurgitation. There is mild tricuspid valve regurgitation. The estimated pulmonary arterial pressure is 36.6 mmHg. technically limited study, can not rule out mitral stenosis BP: / HR: Rhythm: Atrial fibrillation, Atrial flut ter MEASUREMENTS (Male / Female) Normal Values Technical Quality:Very technically difficult study 2D ECHO LV Diastolic Diameter PLAX 5.0 cm 4.2 - 5.9 / 3.9 - 5.3 cm LV Systolic Diameter PLAX 4.5 cm IVS Diastolic Thickness 1.0 cm 0.6 - 1.0 / 0.6 - 0.9 cm LVPW Diastolic Thickness 1.2 cm 0.6 - 1.0 / 0.6 - 0.9 cm LV Relative Wall Thickness 0.4 RV Internal Dim ED PLAX 2.2 cm LVOT Diameter 1.6 cm Aortic Root Diameter 2.2 cm LA Systolic Diameter LX 4.2 cm 3.0 - 4.0 / 2.7 - 3.8 cm M-MODE AV Cusp Separation MM 1.6 cm DOPPLER AV Peak Velocity 127.0 cm/s AV Peak Gradient 6.5 mmHg AV Mean Gradient 4.0 mmHg AV Velocity Time Integral 21.0 cm LVOT Peak Velocity 55.4 cm/s LVOT Peak Gradient 1.2 mmHg LVOT Velocity Time Integral 8.0 cm AV Area Cont Eq vti 0.8 cm AV Area Cont Eq pk 0.9 cm Mitral E Point Velocity 87.8 cm/s LV E' Lateral Velocity 8.9 cm/s Mitral E to LV E' Lateral Ratio 9.9 LV E' Septal Velocity 13.7 cm/s Mitral E to LV E' Septal Ratio 6.4 TR Peak Velocity 258.0 cm/s TR Peak Gradient 26.6 mmHg Right Atrial Pressure 10.0 mmHg Pulmonary Artery Systolic Pressu 36.6 mmHg Right Ventricular Systolic Press 36.6 mmHg PV Peak Velocity 54.9 cm/s PV Peak Gradient 1.2 mmHg FINDINGS LEFT VENTRICLE Normal left ventricular size. Mild concentric left ventricular hypertrophy. The left ventricular systolic function is severely reduced with an estimated ejection fraction in th e range of 25-30%. RIGHT VENTRICLE Normal right ventricular size and systolic function. LEFT ATRIUM The left atrial size is normal. RIGHT ATRIUM The right atrial size is normal. ATRIAL SEPTUM No atrial level shunt is demonstrated by color flow Doppler interrogation. AORTA The aortic root and proximal ascending aorta are normal in size on limited imaging. MITRAL VALVE Mild mitral valve regurgitation. Moderate mitral annular calcification. AORTIC VALVE Aortic valve sclerosis is present. No aortic valve regurgitation. TRICUSPID VALVE There is mild tricuspid valve regurgitation. The estimated pulmonary arterial pressure is 36.6 mmHg. PULMONARY VALVE The pulmonary valve is not well visualized. VESSELS The inferior vena cava was not well visualized. PERICARDIUM No pericardial effusion. Oscar Prieto MD, FACC, FSCAI (Electronically Signed) Final Date:23 December 2018 12:24
--- NOTE | 2018-12-23 16:53 | P.PNIM ---
Subjective Interval history: 68-year-old female admitted with acute CHF exacerbation, A. fib with rapid ventricular rate, Patient seen and examined, doing a little better today, still short of breath, some cough, denies chest pain, no dizziness. Heart rate still up a little Physical Exam Vital signs: Vital Signs 12/22/18 20:00 12/22/18 20:05 12/22/18 23:52 Temperature 97.7 F Pulse Rate 120 H 113 H Respiratory Rate 18 Blood Pressure 121/83 Pulse Oximetry 95 94 L 12/23/18 00:00 12/23/18 00:35 12/23/18 04:02 Temperature 98.0 F Pulse Rate 110 H 102 H Respiratory Rate 18 18 Blood Pressure 106/78 Pulse Oximetry 96 12/23/18 04:20 12/23/18 08:00 12/23/18 08:28 Temperature 97.3 F L Pulse Rate 100 H 101 H 91 H Respiratory Rate 18 18 Blood Pressure 119/78 119/81 Pulse Oximetry 96 92 L 12/23/18 12:00 12/23/18 12:16 Temperature 97.9 F Pulse Rate 108 H 101 H Respiratory Rate 20 Blood Pressure 147/75 H Pulse Oximetry 96 Intake & Output 12/22/18 12/23/18 12/23/18 18:59 06:59 18:59 Intake Total 1540 / 1540 700 / 700 Output Total 1600 / 1600 730 / 730 Balance -60 / -60 -30 / -30 Weight 113 kg Intake: IV 100 / 100 100 / 100 Azactam Inj 1,000 MG In NS Inj 100 / 100 100 / 100 100 ML @ 200 mls/hr IV.SIG Q12H J[facility]I Rx#:[id number] Oral 1440 / 1440 600 / 600 Output: Urine 1600 / 1600 Urine Amount (Catheter) 730 / 730 Indwelling Urethral Catheter 730 / 730 Other: Date of Last Bowel Movement 12/21/18 12/22/18 12/22/18 # Bowel Movements 3 Narrative: chronically ill appeartin 68yo w f awake alert oriented x 3 nad heart s1s2 reg e ectopy tacky lungs coarse rales bases improved air movement abd soft nondt obese pos bs ext chronic edema w wrinkling hyperemic discoloration and large area of ulceration from blister eruption w serous drainage right lateral Urinary Catheter Management Indwelling Urethral Catheter: Cath placed during this visit: yes Reason for continuing: Hourly intake/output Insertion date: 12/22/18 Insertion time: 22:00 Results Labs CBC & Chem 7: 12/23/18 08:17 12/23/18 08:07 Assessment and Plan (1) Congestive heart failure: Code(s): I50.9 - Heart failure, unspecified Status: Acute (2) Chronic atrial fibrillation: Code(s): I48.2 - Chronic atrial fibrillation Status: Chronic (3) Atypical chest pain: Code(s): R07.89 - Other chest pain Status: Acute (4) Hypertension: Code(s): I10 - Essential (primary) hypertension Status: Chronic Plan ACUTE ON CHRONIC HYPOXIC RESP FAILURE - wean oxygen as tolerated ACUTE EXACERBATION OF CHRONIC SYSTOLIC CHF - iv lasix 4omg iv bid, 2D echo: EF 25-30%, LVH AFIB w RVR - rate control on eliquis, continue beta-giovana titrate as per HYPOKALEMIA replace po today COPD - cont pulm tx, stable CAD - cont asa daily eliquis, coreg daily UTI - poa, ecoli MDRO - replace walton, day 2/ aztreonam. HTN - lisinopril daily, DYLSIPIDEMIA resume statin, AAA - 4.7cm - cont bb, bp control, outpatient follow-up with vascular MORBID OBESITY bmi 47 - diet activity when stable DEPRESSION /ANXIETY resume home meds PANNICULITIIS - found on ct scan, no significant complaints will be on abx, WOUNDs RLE - wound care consult - dvt prophylaxis - eliquis dispo - hospice following [facility] cm, discussed with patient she wishes to go home on discharge planning when improved. Progress Note: Quality VTE Deep Vein Thrombosis/Pulmonary Embolism Present on Admission: No _ (1) Congestive heart failure Qualifiers: Heart failure type: unspecified Heart failure chronicity: acute Qualified Code(s): I50.9 - Heart failure, unspecified (2) Hypertension Qualifiers: Hypertension type: essential hypertension Qualified Code(s): I10 - Essential (primary) hypertension
[2018-12-24 08:14] LABS: Calcium 7.8 mg/dL (8.5-10.1); Carbon Dioxide 36.6 meq/L (21.0-32.0); Magnesium 2.1 mg/dL (1.5-2.5); Potassium 3.1 meq/L (3.5-5.1)
[2018-12-24] MEDS: Carvedilol 12.5 MG Tablet PO SCH ×2 (08:44→20:19)
[2018-12-24] MEDS: Senna/Docusate Sodium 8.6/50 MG Tablet PO SCH ×2 (08:47→20:18)
--- NOTE | 2018-12-24 16:09 | US ---
EXAM DATE: 12/24/2018 4:03 PM EST AGE/SEX: 68 years / Female INDICATIONS: Left leg pain. CLINICAL DATA: This is the patient's initial encounter. Patient reports that signs and symptoms have been present for 1 week and indicates a pain score of 2/10. MEDICAL/SURGICAL HISTORY: Aneurysm, abdominal. Congestive heart failure. Chronic obstructive pulmonary disease. Atrial fibrillation. Depression with anxiety. Hypertension. Hyperlipidemia. Renal failure. Tubal ligation. COMPARISON: No prior exams available for comparison. TECHNIQUE: Venous ultrasound of both lower extremities was performed from the inguinal ligament to t he proximal calf. Real-time, color Doppler and spectral tracing, compression and augmentation techni ques were used. FINDINGS: Normal compression of the deep venous system from the inguinal region to the proximal calf . No echogenic clot is seen. Normal response of the venous system to augmentation and respiration. CONCLUSION: 1. The study is negative for lower extremity deep venous thrombosis. Electronically signed by: Nicolas Segura MD Board Certified Radiologist 12/24/2018 4:08 PM EST
--- NOTE | 2018-12-24 16:55 | P.PNIM ---
Subjective Interval history: 68-year-old female admitted with acute CHF exacerbation, A. fib with rapid ventricular rate, Patient seen and examined, doing a little better today, still short of breath, congested cough, denies chest pain, no dizziness, still w edema but improved Physical Exam Vital signs: Vital Signs 12/23/18 20:00 12/23/18 21:10 12/24/18 00:00 Temperature 98.5 F 98.2 F Pulse Rate 113 H 95 H 101 H Respiratory Rate 18 35 H 18 Blood Pressure 127/93 H 156/82 H Pulse Oximetry 94 L 97 94 L 12/24/18 00:09 12/24/18 00:37 12/24/18 04:30 Temperature 98.0 F Pulse Rate 95 H 102 H Respiratory Rate 20 19 18 Blood Pressure 114/98 H Pulse Oximetry 94 L 12/24/18 05:42 12/24/18 08:00 12/24/18 08:12 Temperature 97.7 F Pulse Rate 106 H 98 H Respiratory Rate 19 18 Blood Pressure 110/72 Pulse Oximetry 94 L 12/24/18 12:00 12/24/18 12:12 Temperature 97.4 F L Pulse Rate 100 H 87 Respiratory Rate 18 Blood Pressure 102/75 Pulse Oximetry 94 L Intake & Output 12/23/18 12/24/18 12/24/18 18:59 06:59 18:59 Intake Total 100 / 100 460 / 460 Output Total 2200 / 2200 Balance 100 / 100 -1740 / -1740 Weight 112.5 kg Intake: IV 100 / 100 100 / 100 Azactam Inj 1,000 MG In NS Inj 100 / 100 100 / 100 100 ML @ 200 mls/hr IV.SIG Q12H [facility] Rx#:[id number] Oral 360 / 360 Output: Urine Amount (Catheter) 2200 / 2200 Indwelling Urethral Catheter 2200 / 2200 Other: Date of Last Bowel Movement 12/22/18 12/23/18 12/23/18 # Bowel Movements 1 Narrative: chronically ill appeartin 68yo w f awake alert oriented x 3 nad heart s1s2 reg e ectopy tachy lungs coarse [place] improved air movement abd soft nondt obese pos bs echymosis ext chronic edema w wrinkling hyperemic discoloration and large area of superfucial ulceration from blister eruption w serous drainage right lateral Urinary Catheter Management Indwelling Urethral Catheter: Cath placed during this visit: yes Reason for continuing: Hourly intake/output Insertion date: 12/22/18 Insertion time: 22:00 Results Labs CBC & Chem 7: 12/23/18 08:17 12/24/18 05:49 Imaging Imaging: Impressions Venous Doppler Study 12/24/18 00:00 CONCLUSION: 1. The study is negative for lower extremity deep venous thrombosis. Assessment and Plan (1) Congestive heart failure: Code(s): I50.9 - Heart failure, unspecified Status: Acute (2) Chronic atrial fibrillation: Code(s): I48.2 - Chronic atrial fibrillation Status: Chronic (3) Atypical chest pain: Code(s): R07.89 - Other chest pain Status: Acute (4) Hypertension: Code(s): I10 - Essential (primary) hypertension Status: Chronic Plan ACUTE ON CHRONIC HYPOXIC RESP FAILURE - wean oxygen as tolerated ACUTE EXACERBATION OF CHRONIC SYSTOLIC CHF - iv lasix 4omg iv bid, 2D echo: EF 25-30%, LVH AFIB w RVR - rate control on eliquis, continue beta-giovana titrate as per HYPOKALEMIA 2.9-->3.1replace po again today COPD - cont pulm tx, stable CAD - cont asa daily eliquis, coreg daily UTI - poa, ecoli MDRO - replace [place], day 2/ aztreonam. HTN - lisinopril daily, DYLSIPIDEMIA resume statin, AAA - 4.7cm - cont bb, bp control, outpatient follow-up with vascular MORBID OBESITY bmi 47 - diet activity when stable DEPRESSION /ANXIETY resume home meds PANNICULITIIS - found on ct scan, no significant complaints, will be on abx, WOUNDs RLE - wound care consult - dvt prophylaxis - eliquis dispo - hospice following will fu w cm, discussed with patient she wishes to go home on discharge planning she wishes another hospice, will consult otherwise home w [facility] Progress Note: Quality VTE Deep Vein Thrombosis/Pulmonary Embolism Present on Admission: No _ (1) Congestive heart failure Qualifiers: Heart failure type: unspecified Heart failure chronicity: acute Qualified Code(s): I50.9 - Heart failure, unspecified (2) Hypertension Qualifiers: Hypertension type: essential hypertension Qualified Code(s): I10 - Essential (primary) hypertension
[2018-12-24] MEDS: Spironolactone 25 MG Tablet PO SCH (17:25)
--- NOTE | 2018-12-24 23:16 | P.PNCA ---
Subjective Interval history: Doing better overall No chest pain Medications and Allergies Active Medications: Active Medications Acetaminophen (Tylenol) 650 mg PO Q4H PRN PRN Reason: Temp > 100.4 Hydrocodone Bitart/Acetaminophen ([place] 10/325) 1 tab PO Q4H PRN PRN Reason: pain 2-5 Last Admin: 12/24/18 20:19 Dose: 1 tab Hydrocodone Bitart/Acetaminophen ([place] 10/325) 1 tab PO Q4H PRN PRN Reason: pain of 6-10 Last Admin: 12/24/18 16:20 Dose: 1 tab Al Hydroxide/Mg Hydroxide (Milk Of Magnesia Liq) 30 ml PO Q12H PRN PRN Reason: Mild Constipation Albuterol (Duoneb Neb (Prn)) 1 ampul NEB Q4HR NEB PRN PRN Reason: SHORTNESS OF BREATH Last Admin: 12/24/18 20:32 Dose: 1 ampul Apixaban (Eliquis) 5 mg PO BID [facility] Last Admin: 12/24/18 20:19 Dose: 5 mg Bisacodyl (Dulcolax Supp) 10 mg RECTAL DAILY PRN PRN Reason: SEVERE CONSITIPATION Carvedilol (Coreg) 6.25 mg PO BID [facility] Last Admin: 12/24/18 20:19 Dose: 6.25 mg Furosemide (Lasix Inj) 40 mg IV.PUSH BID@0900,1800 [facility] Last Admin: 12/24/18 17:08 Dose: 40 mg Aztreonam 1,000 mg/ Sodium (Chloride) 100 mls @ 200 mls/hr IV.SIG Q12H [facility] Last Infusion: 12/24/18 17:46 Dose: Infused Lactulose (Lactulose Liq) 30 ml PO DAILY PRN PRN Reason: SEVERE CONSITIPATION Ondansetron HCl (Zofran Inj) 4 mg IV.PUSH Q6H PRN PRN Reason: NAUSEA OR VOMITING Senna/Docusate Sodium (Stacie-Colace) 1 tab PO BID [facility] Last Admin: 12/24/18 20:18 Dose: 1 tab Sennosides (Senokot) 17.2 mg PO Q12H PRN PRN Reason: Moderate Constipation Sodium Chloride (Ns Flush) 2 ml IV.FLUSH BID [facility] Last Admin: 12/24/18 20:20 Dose: 2 ml Sodium Chloride (Ns Flush) 2 ml IV.FLUSH PRN PRN PRN Reason: FLUSH AFTER USING IV ACCESS Spironolactone (Aldactone) 25 mg PO BID@0900,1800 JODI Last Admin: 12/24/18 17:25 Dose: 25 mg Allergies Allergy/AdvReac Type Severity Reaction Status Date / Time penicillin G Allergy Severe THROAT Verified 12/20/18 18:17 CLOSES Home Medications Medication Instructions Recorded Confirmed Type albuterol sulfate 4 mg PO Q12H 12/20/18 12/20/18 History apixaban [Eliquis] 5 mg PO BID 12/20/18 12/20/18 History furosemide 20 mg PO DAILY 12/20/18 12/20/18 History Physical Exam Vital signs: Vital Signs 12/24/18 00:00 12/24/18 00:09 12/24/18 00:37 Temperature 98.2 F Pulse Rate 101 H 95 H Respiratory Rate 18 20 19 Blood Pressure 156/82 H Pulse Oximetry 94 L 12/24/18 04:30 12/24/18 05:42 12/24/18 08:00 Temperature 98.0 F Pulse Rate 102 H 106 H Respiratory Rate 18 19 Blood Pressure 114/98 H Pulse Oximetry 94 L 12/24/18 08:12 12/24/18 12:00 12/24/18 12:12 Temperature 97.7 F 97.4 F L Pulse Rate 98 H 100 H 87 Respiratory Rate 18 18 Blood Pressure 110/72 102/75 Pulse Oximetry 94 L 94 L 12/24/18 16:00 12/24/18 16:12 12/24/18 17:39 Temperature 97.2 F L Pulse Rate 114 H 98 H Respiratory Rate 18 Blood Pressure 107/90 Pulse Oximetry 94 L 92 L 12/24/18 19:00 12/24/18 20:00 Temperature 98.0 F Pulse Rate 125 H 95 H Respiratory Rate 22 18 Blood Pressure 156/68 H Pulse Oximetry 95 Intake & Output 12/24/18 12/24/18 12/25/18 06:59 18:59 06:59 Intake Total 460 / 460 820 / 820 Output Total 2200 / 2200 1600 / 1600 Balance -1740 / -1740 -780 / -780 Weight 112.5 kg Intake: IV 100 / 100 100 / 100 Azactam Inj 1,000 MG In NS Inj 100 / 100 100 / 100 100 ML @ 200 mls/hr IV.SIG Q12H [facility] Rx#:[id number] Oral 360 / 360 720 / 720 Output: Urine 1600 / 1600 Urine Amount (Catheter) 0 / 0 Indwelling Urethral Catheter 2199 / 2199 Other: Date of Last Bowel Movement 12/23/18 12/23/18 12/23/18 # Bowel Movements 1 0 Narrative: GENERAL: NAD, AAOx3 SKIN: Warm and dry. HEAD: Atraumatic. Normocephalic. EYES: Pupils equal and round. No scleral icterus. No injection or drainage. ENT: No nasal bleeding or discharge. Mucous membranes pink and moist. NECK: Trachea midline. No JVD. CARDIOVASCULAR: Irregularly irregular RESPIRATORY: No accessory muscle use. Decreased breath sounds GASTROINTESTINAL: Abdomen soft, non-tender, nondistended. Hepatic and splenic margins not palpable. MUSCULOSKELETAL: Left lower extremity with erythema, more edematous than right NEUROLOGICAL: Awake and alert. No obvious cranial nerve deficits. Motor grossly within normal limits. Five out of 5 muscle strength in the arms and legs. Normal speech. PSYCHIATRIC: Appropriate mood and affect; insight and judgment normal. - Urinary Catheter Management Indwelling Urethral Catheter Cath placed during this visit: yes Reason for continuing: Hourly intake/output Insertion date: 12/22/18 Insertion time: 22:00 Results 12/23/18 08:17 12/24/18 05:49 CBC 12/23/18 Range/Units 08:17 WBC 10.2 (4.0-11.0) th/mm3 RBC 4.96 (4.00-5.30) mil/mm3 Hgb 13.4 (11.6-15.3) gm/dL Hct 42.0 (35.0-46.0) % Plt Count 187 (150-450) th/mm3 Neut # (Auto) 8.9 H (1.8-7.7) th/mm3 Lymph # (Auto) 0.7 L (1.0-4.8) th/mm3 [place] # (Auto) 0.5 (0.0-0.9) th/mm3 Eos # (Auto) 0.1 (0.0-0.4) th/mm3 Baso # (Auto) 0.0 (0.0-0.2) th/mm3 Comprehensive Metabolic Panel 12/23/18 12/24/18 Range/Units 08:07 05:49 Sodium 140 139 (136-145) meq/L Potassium 2.9 L* 3.1 L (3.5-5.1) meq/L Chloride 95 L 95 L (98-107) meq/L Carbon Dioxide 38.5 H 36.6 H (21.0-32.0) meq/L BUN 28 H 25 H (7-18) mg/dL Creatinine 1.07 H 0.96 (0.50-1.00) mg/dL Calcium 7.9 L 7.8 L (8.5-10.1) mg/dL Intake and Output 12/24/18 12/24/18 12/25/18 14:59 22:59 06:59 Intake Total 820 / 820 Output Total 1600 / 1600 Balance -780 / -780 Intake: IV 100 / 100 Azactam Inj 1,000 MG In NS Inj 100 / 100 100 ML @ 200 mls/hr IV.SIG Q12H JODI Rx#:[id number] Oral 720 / 720 Output: Urine 1600 / 1600 Other: Date of Last Bowel Movement 12/23/18 12/23/18 # Bowel Movements 0 - Imaging and Cardiology Imaging: Impressions Venous Doppler Study 12/24/18 00:00 CONCLUSION: 1. The study is negative for lower extremity deep venous thrombosis. Assessment and Plan - Assessment (1) Congestive heart failure Code(s): I50.9 - Heart failure, unspecified Status: Acute Plan: Stable overnight. Good diuresis since admission. Echo pending. ? has some degree of aortic stenosis. No evidence for ACS. HR's in atrial fib slightly elevated. RECOMMEND await echo, continue IV furosemide, beta giovana. (2) Chronic atrial fibrillation Code(s): I48.2 - Chronic atrial fibrillation Status: Chronic Plan: Slightly increased HR's. Continues on apixaban. Recommend increase beta giovana dosing. (3) Atypical chest pain Code(s): R07.89 - Other chest pain Status: Acute Plan: No further atypical CP. Despite 4 days of fairly constant CP last week, CK negative for CO. (4) Hypertension Code(s): I10 - Essential (primary) hypertension Status: Chronic Plan: Stable. Normotensive. - Plan 1) Acute CHF Previous EF relatively normal Now reported as 25-30% Reviewed echocardiogram, not possible to determine EF from very technically difficult echo 2) Elevated troponin Secondary to CHF No signs of ACS 3) Left lower extremity erythema and more edema than right Lower extremity ultrasound to rule out DVT 4) Afib Continue on Eliquis 5) Discussed with her about her CHF She has not been in the hospital for 9 months, previously before this multiple admissions for CHF Consideration of stress testing due to question of lowered EF (albeit difficult to determine from echo) and heart failure She currently is under hospice care She wants aggressive care while still being on hospice, consider palliative care consult to determine goals, as goals not in line with hospice For now, will hold off on stress testing until her goals are decided (1) Congestive heart failure Qualifiers: Heart failure type: unspecified Heart failure chronicity: acute Qualified Code(s): I50.9 - Heart failure, unspecified (4) Hypertension Qualifiers: Hypertension type: essential hypertension Qualified Code(s): I10 - Essential (primary) hypertension
[2018-12-25 06:19] LABS: Albumin 2.5 g/dL (3.4-5.0); Calcium 7.9 mg/dL (8.5-10.1); Carbon Dioxide 36.1 meq/L (21.0-32.0); Magnesium 2.1 mg/dL (1.5-2.5); Phosphorus 2.6 mg/dL (2.5-4.9); Potassium 3.7 meq/L (3.5-5.1)
[2018-12-25] MEDS: Carvedilol 12.5 MG Tablet PO SCH (08:49)
[2018-12-25] MEDS: Spironolactone 25 MG Tablet PO SCH ×2 (08:49→17:51)
[2018-12-25] MEDS: Senna/Docusate Sodium 8.6/50 MG Tablet PO SCH ×2 (08:50→22:03)
--- NOTE | 2018-12-25 12:33 | P.PNWCN ---
Wound Care Nurse Consult Description: Wound care consulted for wound management to the E by Dr. Lainez. Communicated with: Spoke with bedside nurse Nedra Martin RN. Recommendation: 1. Cleanse wound with normal saline and pat dry. 2. Apply Versatel One over skin tear. 3. Apply Optilock dressing over wound. 4. Secure with rolled gauze. 5. Change daily and PRN if saturated or dislodged. 6. Versatel one may stay in place for 5 days. Additional information: Patient seen today by wound care. Patient laying in bed. Skin tear noted to Right lateral calf. Wound presents as unroofed bulla. Patient states "I scratched it with a butter knife." Wound cleansed with normal saline and edges approximated as much as possible with a moistened cotton applicator. Versatel one applied and Optilock dressing to cover. Rolled gauze used to secure dressing. Wound/Pressure Injury - Patient Status Premedicated for Pain Prior to Dressing Change: No (Not needed) - Wound Right Lateral Calf Wound Type: Skin Tear Requested from Provider a Wound Care Consult: Yes (Patient seen today by wound care nurse.) Length (cm): 7 Width (cm): 4.6 Depth (cm): 0.1 (~<0.1 cm) Wound Bed Appearance: [place] Wound Bed Appearance: 100% [place] Tissue. Surrounding Tissue Appearance: Blanched/Dull Surrounding Tissue Temperature: Warm Drainage Description: Serosanguinous Drainage Amount: Moderate Drainage Odor: No Odor Dressing Status: Changed Cleansing Solution: Saline Primary Dressing: Veratel one Cover Dressing: Optilock and Rolled Gauze Tape Type: Transparent Wound Dressing Change Date: 12/25/18 Wound Margin Description: Margins are un approximated
--- NOTE | 2018-12-25 13:54 | P.CONPAL ---
Consult Service: Palliative Care Requesting Physician: Valery Acevedo Reason for Consult: a. To assist with evaluation and management of symptoms including: Dyspnea, pain, edema b. To assist medical decision maker(s) with: better understanding of current medical conditions; weighing benefits/burdens of medical treatment options; making medical treatment decisions. Primary Care Provider: Randi August MD History of Present Illness History of Present Illness: This is a 68 y/o female with hx AAA, AF, CHF, COPD on o2 at home, depression who presented to ER 12/20/18 for eval of abd pain with 3 day hx, abd and BLE swelling, and SOB. She told me she fell about a week ago and after that noticed the leg swelling. SHe was reportedly a [facility] hospice pt with primary dx CHF. Initial labs remarkable for WBC 13k, 89.6% neutrophils, BNP 810, troponin 0.24. She was found to have UTI. CT Abd showed 3mm increase size AAA in last 2 years, probable panniculitis, paraumbilical hernias. EKG 12/20 showed new AF w/ RVR. CXR showed indicated chronic interstitial dz vs recurrent edema. [facility] and [facility] need [facility], improved with o2 increased to 5L. Echo 12/23 showed EF 25-30%, reportedly last year was 50-55%. Cardiology recommending stress testing if goals are aggressive. Patient seen in room, no family at bedside. She is complaining of bilateral leg pain worse on the left 20 out of 10 and similarly severe abdominal pain. She says she feels somewhat short of breath to conversation and generally gets short of breath when she is excited. She endorses anxiety and depression, mostly related to of her parents and her brother in the last year within 3 months of each other. She says she takes medications at home for anxiety and depression but cannot recall what they are. At home she takes morphine for her pain and says it works well for her. Here she is on Hooker 10 and says it is not helping. She says her swelling has improved, "when I got here I looked like I was 9 months ." She said her stomach was down to her knees. Her abdomen is tender to the touch and her panniculus appears erythematous. Function/Cognitive Trajectory: Previously was ambulatory with intermittent use wheeled walker. Had fall 1 week ago. Other than that patient feels she has been doing relatively well in the last couple months except for the fall 1 week ago. Review of Systems Constitutional: Denies fever(s) Eyes: Denies change in vision Ears, Nose, Mouth, and Throat: Denies abnormal hearing Cardiovascular: Reports chest pain, Reports generalized swelling, Reports irregular heart rhythm, Reports leg sores, Reports leg swelling, Reports shortness of breath with activity, Reports shortness of breath when lying down Respiratory: Reports shortness of breath, Reports shortness of breath with activity, Reports wheezing Gastrointestinal: Reports abdominal pain, Denies nausea Musculoskeletal: Reports radiating pain into limb Skin/Breast: Reports sores Neurologic: Reports radiating pain, Reports weakness, Denies confusion Psychiatric: Reports anxiety, Reports depression, Denies hopelessness Hematologic/Lymphatic: Denies easy bleeding PMFSH - History History Provided By: Patient - Medical History Medical History: Medical History (Last Updated 12/24/18 @ 11:08 by Mayte Somers) AAA (abdominal aortic aneurysm) Atrial fibrillation CHF (congestive heart failure) COPD (chronic obstructive pulmonary disease) Depression with anxiety HTN (hypertension) Hyperlipidemia Renal failure - Surgical History Surgical History: Surgical History (Last Reviewed 12/21/18 @ 08:57 by Dominga Collins) H/O tubal ligation - Family History Family History: Family History (Last Reviewed 12/21/18 @ 08:57 by Dominga Collins) Other Coronary artery disease Diabetes mellitus - Social History I have reviewed the patient's Social History: Yes - Tobacco History Second Hand Smoke Exposure: No Tobacco Use In Past 30 Days: No Smoking Status: Light tobacco smoker Tobacco Type: Cigarettes - Alcohol History How Often Do You Have a Drink Containing Alcohol: Never - Substance Use History Substance History: No History of Abuse - Travel History Recent Travel in the [place] Within the Last 8 Weeks: No Recent Travel Out of the Country Within the Last 8 Weeks: No - Immunization History Tetanus Immunization: Unsure Hx Influenza Vaccine This Season: Yes Medications and Allergies Active Medications: Active Medications Acetaminophen (Tylenol) 650 mg PO Q4H PRN PRN Reason: Temp > 100.4 Hydrocodone Bitart/Acetaminophen (Hooker 10/325) 1 tab PO Q4H PRN PRN Reason: pain 2-5 Last Admin: 12/25/18 04:24 Dose: 1 tab Hydrocodone Bitart/Acetaminophen (Hooker 10/325) 1 tab PO Q4H PRN PRN Reason: pain of 6-10 Last Admin: 12/24/18 16:20 Dose: 1 tab Al Hydroxide/Mg Hydroxide (Milk Of Magnesia Liq) 30 ml PO Q12H PRN PRN Reason: Mild Constipation Albuterol (Duoneb Neb (Prn)) 1 ampul NEB Q4HR NEB PRN PRN Reason: SHORTNESS OF BREATH Last Admin: 12/24/18 20:32 Dose: 1 ampul Apixaban (Eliquis) 5 mg PO BID [facility] Last Admin: 12/25/18 08:49 Dose: 5 mg Bisacodyl (Dulcolax Supp) 10 mg RECTAL DAILY PRN PRN Reason: SEVERE CONSITIPATION Carvedilol (Coreg) 6.25 mg PO BID [facility] Last Admin: 12/25/18 08:49 Dose: 6.25 mg Furosemide (Lasix Inj) 40 mg IV.PUSH BID@0900,1800 [facility] Last Admin: 12/25/18 08:51 Dose: 40 mg Aztreonam 1,000 mg/ Sodium (Chloride) 100 mls @ 200 mls/hr IV.SIG Q12H [facility] Last Infusion: 12/25/18 06:21 Dose: Infused Lactulose (Lactulose Liq) 30 ml PO DAILY PRN PRN Reason: SEVERE CONSITIPATION Ondansetron HCl (Zofran Inj) 4 mg IV.PUSH Q6H PRN PRN Reason: NAUSEA OR VOMITING Senna/Docusate Sodium (Stacie-Colace) 1 tab PO BID [facility] Last Admin: 12/25/18 08:50 Dose: Not Given Sennosides (Senokot) 17.2 mg PO Q12H PRN PRN Reason: Moderate Constipation Sodium Chloride (Ns Flush) 2 ml IV.FLUSH BID [facility] Last Admin: 12/25/18 08:51 Dose: 2 ml Sodium Chloride (Ns Flush) 2 ml IV.FLUSH PRN PRN PRN Reason: FLUSH AFTER USING IV ACCESS Spironolactone (Aldactone) 25 mg PO BID@0900,1800 [facility] Last Admin: 12/25/18 08:49 Dose: 25 mg Allergies Allergy/AdvReac Type Severity Reaction Status Date / Time penicillin G Allergy Severe THROAT Verified 12/20/18 18:17 CLOSES Home Medications Medication Instructions Recorded Confirmed Type albuterol sulfate 4 mg PO Q12H 12/20/18 12/20/18 History apixaban [Eliquis] 5 mg PO BID 12/20/18 12/20/18 History furosemide 20 mg PO DAILY 12/20/18 12/20/18 History Advance Directives Living Will: No Healthcare Surrogate: Yes (Son Elder see important contacts) Power of Gas Pump Attendant: No Today's verbally stated goals: Comfort, go home with hospice Ethical and Legal Issues: Patient is currently capacitated to make medical decisions. In the event she loses capacity she has indicated that she would like her son Elder to be her healthcare surrogate. Physical Exam Vital Signs: Vital Signs - 24 hr 12/24/18 16:00 12/24/18 16:12 12/24/18 17:39 Temperature 97.2 F L Pulse Rate 114 H 98 H Respiratory Rate 18 Blood Pressure 107/90 Pulse Oximetry 94 L 92 L 12/24/18 19:00 12/24/18 20:00 12/25/18 00:00 Temperature 98.0 F 97.8 F Pulse Rate 125 H 95 H 101 H Respiratory Rate 22 18 16 Blood Pressure 156/68 H 145/80 H Pulse Oximetry 95 97 12/25/18 00:22 12/25/18 04:00 12/25/18 08:00 Temperature 97.6 F 98.1 F Pulse Rate 88 100 H Respiratory Rate 9 L 16 14 Blood Pressure 110/65 123/72 Pulse Oximetry 95 97 12/25/18 12:00 12/25/18 12:05 Temperature 98.7 F Pulse Rate 90 Respiratory Rate 15 Blood Pressure 127/82 Pulse Oximetry 97 97 I&O: Intake & Output 12/23/18 12/24/18 12/25/18 12/26/18 06:59 06:59 06:59 06:59 Intake Total 2240 / 2240 560 / 560 1400 / 1400 Output Total 2330 / 2330 2200 / 2200 2300 / 2300 Balance -90 / -90 -1640 / -1640 -900 / -900 Weight 113 kg 112.5 kg 114 kg Physical Exam: CONSTITUTIONAL/GENERAL: This is an obese female TUBES/LINES/DRAINS: PIV walton SKIN: No jaundice, rashes. Ecchymoses on upper extremities. +weeping LLE, bandage RLE. Skin temperature appropriate. Not diaphoretic. HEAD: Atraumatic. Normocephalic. EYES: Pupils equal and round and reactive. Extraocular motions intact. No scleral icterus. No injection or drainage. Fundi not examined. ENT: Hearing grossly normal. Nose without bleeding or purulent drainage. NECK: Trachea midline. Supple, nontender. CARDIOVASCULAR: irr rate and rhyth, + murmur, gallops, or rubs. No JVD. Peripheral pulses symmetric. RESPIRATORY/CHEST: Symmetric respirations. +wheezes R>L. SOB to conversation GASTROINTESTINAL: Abdomen semifirm, obese, diffusely TTP but worse in lower quadrants, erythema panniculus, + hernia GENITOURINARY: Without palpable bladder distension. Walton catheter in place. MUSCULOSKELETAL: BLE significant weeping edema and venous stasis changes. No joint tenderness or effusion noted. No calf tenderness. No mottling or clubbing. NEUROLOGICAL: Awake and alert. Motor and sensory grossly within normal limits. Follows commands. Cognitively sharp. Moves all extremities. PSYCHIATRIC: mild anxiety, tearful at times Diagnostic Tests Laboratory: Laboratory Results - last 72 hr 12/23/18 12/23/18 12/24/18 08:07 08:17 05:49 WBC 10.2 RBC 4.96 Hgb 13.4 Hct 42.0 MCV 84.7 MCH 27.1 MCHC 32.0 RDW 23.3 H Plt Count 187 MPV 7.4 Prelim Diff (Auto) Slide review pending Neut % (Auto) 87.1 H Lymph % (Auto) 7.0 L [place] % (Auto) 4.9 Eos % (Auto) 0.9 Baso % (Auto) 0.1 Neut # (Auto) 8.9 H Lymph # (Auto) 0.7 L [place] # (Auto) 0.5 Eos # (Auto) 0.1 Baso # (Auto) 0.0 WBC Differential Manual diff final Seg Neuts % (Manual) 80 H Band Neuts % (Manual) 4 Lymphocytes % (Manual) 6 L Monocytes % (Manual) 4 Eosinophils % (Manual) 3 Metamyelocytes % (Man) 1 Myelocytes % (Man) 1 H Promyelocytes % (Man) 1 H Abs Neuts (Manual) 8.9 H Nucleated RBCs/100 WBC 1 H Differential Comment . Platelet Estimate Normal Platelet Morphology Normal Sodium 140 139 Potassium 2.9 L* 3.1 L Chloride 95 L 95 L Carbon Dioxide 38.5 H 36.6 H Anion Gap 7 7 BUN 28 H 25 H Creatinine 1.07 H 0.96 Estimated GFR 51 L 58 L Random Glucose 137 H 144 H Calcium 7.9 L 7.8 L Phosphorus Magnesium 2.1 Albumin 12/25/18 04:00 WBC RBC Hgb Hct MCV MCH MCHC RDW Plt Count MPV Prelim Diff (Auto) Neut % (Auto) Lymph % (Auto) [place] % (Auto) Eos % (Auto) Baso % (Auto) Neut # (Auto) Lymph # (Auto) [place] # (Auto) Eos # (Auto) Baso # (Auto) WBC Differential Seg Neuts % (Manual) Band Neuts % (Manual) Lymphocytes % (Manual) Monocytes % (Manual) Eosinophils % (Manual) Metamyelocytes % (Man) Myelocytes % (Man) Promyelocytes % (Man) Abs Neuts (Manual) Nucleated RBCs/100 WBC Differential Comment Platelet Estimate Platelet Morphology Sodium 138 Potassium 3.7 Chloride 96 L Carbon Dioxide 36.1 H Anion Gap 6 BUN 26 H Creatinine 0.99 Estimated GFR 56 L Random Glucose 140 H Calcium 7.9 L Phosphorus 2.6 Magnesium 2.1 Albumin 2.5 L Result Diagrams: 12/23/18 08:17 12/25/18 04:00 Microbiology: Microbiology 12/20/18 15:40 Urine Culture - Final Catheterized Urine Escherichia coli Multidrug Resistant Imaging: ITS Impressions Abdomen/Pelvis CT 12/20/18 15:27 CONCLUSION: 1. 3 mm increase in the size of the infrarenal saccular abdominal aortic aneurysm when compared to July 2017, now measuring 4.7 cm in AP dimension. 2. Probable panniculitis. Stable fat-containing paraumbilical hernias. 3. A few scattered sigmoid diverticula without radiographic evidence of diverticulitis. Chest X-Ray 12/21/18 00:00 CONCLUSION: Diffuse increased interstitial markings. These are unchanged from the prior exam. This could represent underlying chronic interstitial disease versus recurrent edema. Venous Doppler Study 12/24/18 00:00 CONCLUSION: 1. The study is negative for lower extremity deep venous thrombosis. Patient/Family Conference Present at Family Conference: pt Family Conference Time: 36 Family Conference Location: Bedside Issues Discussed: * Palliative care role, purpose, approach * Additional medical, psychosocial, and spiritual history * Patients general health, functional status, and cognitive changes in the months leading up to the current hospitalization * Patient understanding of the current medical problems * Patient understanding of prognosis * Patients goals of care as best understood from advance directives and/or conversations and/or values * Current medical treatment options and benefits/burdens of those options * Likely scenarios comparing ongoing aggressive care with a transition to comfort measures only * code status * decision maker * hospice * Questions answered to the best of my ability * Palliative care contact information provided Patient expresses somewhat conflicting goals. For the most part her goals of medical treatment are comfort oriented however she wants to remain full CODE STATUS, saying both "I want to live, anything to keep me alive" and "but when it is my time it is my time." I did explore this with her but for the time being she wishes to remain full code. She is open to further discussion of CODE STATUS at time of discharge. I informed her that she may still be eligible for hospice even if she wants to remain full code however if anything happens it is possible she would be sent back to the hospital and discharged from hospice. I also discussed possibility of her going to a care center for care instead of coming back to the hospital. She does not want any procedures to include a stress test. She is not interested in further diagnostic workup. She expresses the goal of going home to be with her and her dogs. She requests a hospice consult for both her and her ailing at home. Assessment and Plan - Disease Oriented Problem List (1) Acute exacerbation of congestive heart failure (2) Congestive heart failure (3) Acute UTI (4) Chronic atrial fibrillation (5) Atypical chest pain Pertinent Non-Medical Issues: Psychosocial: Patient used to drive a semi-for living. She is originally from [place] and has been in [place] for the last 35 years she is and her currently has end-stage Parkinson's. She recently lost a brother and both of her parents in the last year, they within 3 months of each other. She has 2 brothers who live locally. Spiritual: Pastoral care available Legal: patient is capacitated to make medical decisions. In the event she loses capacity she has designated her son Elder as her decision maker. Ethical issues impacting care:none Important Contacts: Son Elder Villa [phone] Son Varinder Jeffery [phone] Prognosis: This is a 68 y/o female with hx AAA, AF, CHF, COPD on o2 at home, depression who presented to ER 12/20/18, now being treated for UTI, CHF exacerbation. halicat was called for dyspnea and low o2 sats. Recent CHF indicates EF 25-30% but was difficult study. This represents significant drop from last year's EF 50-55%. Given her mult comorbidities and underlying obesity, she is at risk for decline and complications. She is hospice appropriate should goals be in line with comfort. Code Status: Full Code Plan: - LEGAL DECISION MAKER -patient is capacitated to make medical decisions. In the event she loses capacity she has designated her son Elder as her decision maker. - CODE STATUS-full code - GOALS - Patient expresses somewhat conflicting goals. For the most part her goals of medical treatment are comfort oriented however she wants to remain full CODE STATUS, saying both "I want to live, anything to keep me alive" and "but when it is my time it is my time." I did explore this with her but for the time being she wishes to remain full code. She is open to further discussion of CODE STATUS at time of discharge. She does not want any procedures to include a stress test. She is not interested in further diagnostic workup. She expresses the goal of going home to be with her and her dogs. She requests a hospice consult for both her and her ailing at home. - SYMPTOMS - * pain - poss pain sites include: chest, abd, ble from edema, RLE from skin tear , bladder from UTI. Rates leg and abdominal pain 20 out of 10, says morphine works better for her. Has norco 10 PRN q4h * dyspnea - originally presented with SOB. 2/2 CHF, COPD, obesity. SOB to conversation. Has PRn duonebs mgmt per attending * depression/anxiety -seems to be mostly situational in the last year. Given her dyspnea, might consider low dose benzo * edema - 2/2 CHF. presented with worsening BLE edema and weeping. Seems to be improving on furosemide 40mg BID, aldactone 25 mg BID recently started - pt hypokalemic. -Discussed with Dr. Nuñez -Hospice consult pending -Her desire of remaining full code is not necessarily a barrier to her enrolling with hospice. will continue to build trust and discuss further while she is here - Palliative care will continue to follow during hospital course as condition evolves, to assist patient/decision-maker with understanding of medical conditions, weighing benefits/burdens of treatment options, for clarification of goals of treatment. Additionally will assist with any symptoms of palliative concern Appreciation Thank you for the opportunity to participate in the care of Eunice Villa Jeniffer.
--- NOTE | 2018-12-25 15:54 | P.PNIM ---
Subjective Interval history: Patient reports she is feeling better today. Still has significant bilateral lower extremity edema. She indicates that she wants to live but also requested hospice. Physical Exam Vital signs: Vital Signs 12/24/18 16:00 12/24/18 16:12 12/24/18 17:39 Temperature 97.2 F L Pulse Rate 114 H 98 H Respiratory Rate 18 Blood Pressure 107/90 Pulse Oximetry 94 L 92 L 12/24/18 19:00 12/24/18 20:00 12/25/18 00:00 Temperature 98.0 F 97.8 F Pulse Rate 125 H 95 H 101 H Respiratory Rate 22 18 16 Blood Pressure 156/68 H 145/80 H Pulse Oximetry 95 97 12/25/18 00:22 12/25/18 04:00 12/25/18 08:00 Temperature 97.6 F 98.1 F Pulse Rate 88 100 H Respiratory Rate 9 L 16 14 Blood Pressure 110/65 123/72 Pulse Oximetry 95 97 12/25/18 12:00 12/25/18 12:05 Temperature 98.7 F Pulse Rate 97 H Respiratory Rate 15 Blood Pressure 127/82 Pulse Oximetry 97 97 Intake & Output 12/24/18 12/25/18 12/25/18 18:59 06:59 18:59 Intake Total 820 / 820 580 / 580 Output Total 1600 / 1600 700 / 700 Balance -780 / -780 -120 / -120 Weight 114 kg Intake: IV 100 / 100 100 / 100 Azactam Inj 1,000 MG In NS Inj 100 / 100 100 / 100 100 ML @ 200 mls/hr IV.SIG Q12H [facility] Rx#:[id number] Oral 720 / 720 480 / 480 Output: Urine 1600 / 1600 700 / 700 Other: Date of Last Bowel Movement 12/23/18 12/23/18 12/23/18 # Bowel Movements 0 Narrative: GENERAL: Obese female in no acute distress CARDIOVASCULAR: Normal rate and regular rhythm without significant murmurs, gallops, or rubs. RESPIRATORY: Air movement is fair. Bibasilar rales. GASTROINTESTINAL: Abdomen obese, soft, non-tender, non-distended. Normal active bowel sounds MUSCULOSKELETAL: Bilateral lower extremities with 2+ edema PSYCH: Appropriate mood and affect. Insight is fair. Urinary Catheter Management Indwelling Urethral Catheter: Cath placed during this visit: yes Reason for continuing: Hourly intake/output Insertion date: 12/22/18 Insertion time: 22:00 Results Labs CBC & Chem 7: 12/23/18 08:17 12/25/18 04:00 Imaging Imaging: Impressions Venous Doppler Study 12/24/18 00:00 CONCLUSION: 1. The study is negative for lower extremity deep venous thrombosis. Assessment and Plan Plan 68-year-old female with: Acute on chronic hypoxic respiratory failure secondary to acute systolic CHF exacerbation. - Continue IV Lasix 40 mg twice daily. Cardiology following. Previous 2D echo with EF of 25-30%. LVH -Continue Coreg and spironolactone. Add low-dose lisinopril AFIB w RVR - rate controlled. on Coreg and Eliquis HYPOKALEMIA resolved after replacement. COPD - cont pulm tx, stable CAD - cont asa daily eliquis, coreg daily. Discussed with cardiology. Consideration for stress test but patient was refusing. Currently no active complaints. Continue medical management. UTI - poa, ecoli MDRO - replaced walton, continue aztreonam. Plan to do DC on Macrobid HTN -continue Coreg, Lasix. Lisinopril. DYLSIPIDEMIA resume statin, AAA - 4.7cm - cont bb, bp control, outpatient follow-up with vascular MORBID OBESITY bmi 47 - diet activity when stable DEPRESSION /ANXIETY resume home meds PANNICULITIIS - found on ct scan, no significant complaints, antibiotics as above. WOUNDs RLE - wound care consulted dvt prophylaxis - On Eliquis Dispo: Palliative care consulted. Patient's current goal not clearly defined. She wants hospice but also reports she wants everything to be done. She was previously on Hospice. Progress Note: Quality VTE Deep Vein Thrombosis/Pulmonary Embolism Present on Admission: No
[2018-12-25] MEDS ORDERED: Carvedilol 6.25 MG Tablet PO ONE (18:45)
--- NOTE | 2018-12-25 23:55 | P.PNCA ---
Subjective Interval history: Breathing better Edema decreased Medications and Allergies Active Medications: Active Medications Acetaminophen (Tylenol) 650 mg PO Q4H PRN PRN Reason: Temp > 100.4 Hydrocodone Bitart/Acetaminophen ([place] 10/325) 1 tab PO Q4H PRN PRN Reason: pain 2-5 Last Admin: 12/25/18 18:52 Dose: 1 tab Hydrocodone Bitart/Acetaminophen ([place] 10/325) 1 tab PO Q4H PRN PRN Reason: pain of 6-10 Last Admin: 12/24/18 16:20 Dose: 1 tab Al Hydroxide/Mg Hydroxide (Milk Of Magnesia Liq) 30 ml PO Q12H PRN PRN Reason: Mild Constipation Albuterol (Duoneb Neb (Prn)) 1 ampul NEB Q4HR NEB PRN PRN Reason: SHORTNESS OF BREATH Last Admin: 12/24/18 20:32 Dose: 1 ampul Apixaban (Eliquis) 5 mg PO BID [facility] Last Admin: 12/25/18 21:47 Dose: 5 mg Bisacodyl (Dulcolax Supp) 10 mg RECTAL DAILY PRN PRN Reason: SEVERE CONSITIPATION Carvedilol (Coreg) 6.25 mg PO BID [facility] Furosemide (Lasix Inj) 40 mg IV.PUSH BID@0900,1800 [facility] Last Admin: 12/25/18 17:51 Dose: 40 mg Aztreonam 1,000 mg/ Sodium (Chloride) 100 mls @ 200 mls/hr IV.SIG Q12H [facility] Last Infusion: 12/25/18 18:21 Dose: Infused Lactulose (Lactulose Liq) 30 ml PO DAILY PRN PRN Reason: SEVERE CONSITIPATION Lisinopril (Prinivil) 2.5 mg PO DAILY [facility] Ondansetron HCl (Zofran Inj) 4 mg IV.PUSH Q6H PRN PRN Reason: NAUSEA OR VOMITING Senna/Docusate Sodium (Stacie-Colace) 1 tab PO BID [facility] Last Admin: 12/25/18 22:03 Dose: Not Given Sennosides (Senokot) 17.2 mg PO Q12H PRN PRN Reason: Moderate Constipation Sodium Chloride (Ns Flush) 2 ml IV.FLUSH BID [facility] Last Admin: 12/25/18 21:50 Dose: 2 ml Sodium Chloride (Ns Flush) 2 ml IV.FLUSH PRN PRN PRN Reason: FLUSH AFTER USING IV ACCESS Spironolactone (Aldactone) 25 mg PO BID@0900,1800 [facility] Last Admin: 12/25/18 17:51 Dose: 25 mg Allergies Allergy/AdvReac Type Severity Reaction Status Date / Time penicillin G Allergy Severe THROAT Verified 12/20/18 18:17 CLOSES Home Medications Medication Instructions Recorded Confirmed Type albuterol sulfate 4 mg PO Q12H 12/20/18 12/20/18 History apixaban [Eliquis] 5 mg PO BID 12/20/18 12/20/18 History furosemide 20 mg PO DAILY 12/20/18 12/20/18 History Physical Exam Vital signs: Vital Signs 12/25/18 00:00 12/25/18 00:22 12/25/18 04:00 Temperature 97.8 F 97.6 F Pulse Rate 101 H 88 Respiratory Rate 16 9 L 16 Blood Pressure 145/80 H 110/65 Pulse Oximetry 97 95 12/25/18 08:00 12/25/18 12:00 12/25/18 12:05 Temperature 98.1 F 98.7 F Pulse Rate 100 H 97 H Respiratory Rate 14 15 Blood Pressure 123/72 127/82 Pulse Oximetry 97 97 97 12/25/18 16:00 12/25/18 16:03 12/25/18 16:04 Temperature 97.8 F Pulse Rate 111 H 102 H Respiratory Rate Blood Pressure 131/86 Pulse Oximetry 95 95 12/25/18 19:51 Temperature 98.6 F Pulse Rate 124 H Respiratory Rate 20 Blood Pressure 127/86 Pulse Oximetry 96 Intake & Output 12/25/18 12/25/18 12/26/18 06:59 18:59 06:59 Intake Total 580 / 580 820 / 820 Output Total 700 / 700 Balance -120 / -120 820 / 820 Weight 114 kg Intake: IV 100 / 100 100 / 100 Azactam Inj 1,000 MG In NS Inj 100 / 100 100 / 100 100 ML @ 200 mls/hr IV.SIG Q12H [facility] Rx#:[id number] Oral 480 / 480 720 / 720 Output: Urine 700 / 700 Other: # Voids 3 Date of Last Bowel Movement 12/23/18 12/23/18 # Bowel Movements 1 Narrative: GENERAL: NAD, AAOx3 SKIN: Warm and dry. HEAD: Atraumatic. Normocephalic. EYES: Pupils equal and round. No scleral icterus. No injection or drainage. ENT: No nasal bleeding or discharge. Mucous membranes pink and moist. NECK: Trachea midline. No JVD. CARDIOVASCULAR: Irregularly irregular RESPIRATORY: No accessory muscle use. Decreased breath sounds GASTROINTESTINAL: Abdomen soft, non-tender, nondistended. Hepatic and splenic margins not palpable. MUSCULOSKELETAL: Left lower extremity with erythema, more edematous than right NEUROLOGICAL: Awake and alert. No obvious cranial nerve deficits. Motor grossly within normal limits. Five out of 5 muscle strength in the arms and legs. Normal speech. PSYCHIATRIC: Appropriate mood and affect; insight and judgment normal. - Urinary Catheter Management Indwelling Urethral Catheter Cath placed during this visit: yes Reason for continuing: Hourly intake/output Insertion date: 12/22/18 Insertion time: 22:00 Results 12/23/18 08:17 12/25/18 04:00 Comprehensive Metabolic Panel 12/24/18 12/25/18 Range/Units 05:49 04:00 Sodium 139 138 (136-145) meq/L Potassium 3.1 L 3.7 (3.5-5.1) meq/L Chloride 95 L 96 L (98-107) meq/L Carbon Dioxide 36.6 H 36.1 H (21.0-32.0) meq/L BUN 25 H 26 H (7-18) mg/dL Creatinine 0.96 0.99 (0.50-1.00) mg/dL Calcium 7.8 L 7.9 L (8.5-10.1) mg/dL Albumin 2.5 L (3.4-5.0) g/dL Intake and Output 12/25/18 12/25/18 12/26/18 14:59 22:59 06:59 Intake Total 820 / 820 Balance 820 / 820 Intake: IV 100 / 100 Azactam Inj 1,000 MG In NS Inj 100 / 100 100 ML @ 200 mls/hr IV.SIG Q12H [facility] Rx#:[id number] Oral 720 / 720 Other: # Voids 3 Date of Last Bowel Movement 12/23/18 # Bowel Movements 1 - Imaging and Cardiology Imaging: Impressions Venous Doppler Study 12/24/18 00:00 CONCLUSION: 1. The study is negative for lower extremity deep venous thrombosis. Assessment and Plan - Assessment (1) Congestive heart failure Code(s): I50.9 - Heart failure, unspecified Status: Acute Plan: Stable overnight. Good diuresis since admission. Echo pending. ? has some degree of aortic stenosis. No evidence for ACS. HR's in atrial fib slightly elevated. RECOMMEND await echo, continue IV furosemide, beta giovana. (2) Chronic atrial fibrillation Code(s): I48.2 - Chronic atrial fibrillation Status: Chronic Plan: Slightly increased HR's. Continues on apixaban. Recommend increase beta giovana dosing. (3) Atypical chest pain Code(s): R07.89 - Other chest pain Status: Acute Plan: No further atypical CP. Despite 4 days of fairly constant CP last week, CK negative for GA. (4) Hypertension Code(s): I10 - Essential (primary) hypertension Status: Chronic Plan: Stable. Normotensive. - Plan 1) Acute CHF Previous EF relatively normal Now reported as 25-30% Reviewed echocardiogram, not possible to determine EF from very technically difficult echo 2) Elevated troponin Secondary to CHF No signs of ACS 3) Left lower extremity erythema and more edema than right US negative for DVT 4) Afib Continue on Eliquis Rates elevated, would like to avoid BB therapy Plan to place on Cardizem for now 5) Discussed with her about her CHF She has not been in the hospital for 9 months, previously before this multiple admissions for CHF Consideration of stress testing due to question of lowered EF (albeit difficult to determine from echo) and heart failure She currently is under hospice care Discussed with her and palliative care No plan for further stress test or diagnostics per her wishes Plans on hospice consult at home for her and her who is also ill (1) Congestive heart failure Qualifiers: Heart failure type: unspecified Heart failure chronicity: acute Qualified Code(s): I50.9 - Heart failure, unspecified (4) Hypertension Qualifiers: Hypertension type: essential hypertension Qualified Code(s): I10 - Essential (primary) hypertension
[2018-12-26] MEDS ORDERED: Carvedilol 12.5 MG Tablet PO SCH (09:00)
[2018-12-26] MEDS: Lisinopril 5 MG Tablet PO SCH (09:23)
[2018-12-26] MEDS: Spironolactone 25 MG Tablet PO SCH ×2 (09:23→17:26)
[2018-12-26] MEDS: dilTIAZem 30 MG Tablet PO SCH ×4 (09:23→21:00)
[2018-12-26] MEDS: Senna/Docusate Sodium 8.6/50 MG Tablet PO SCH ×2 (09:24→21:01)
--- NOTE | 2018-12-26 15:04 | P.DS ---
DS: Providers Date of admission: 12/21/18 15:16 Primary care physician: Randi August MD Consults: 12/20/18 19:26 HUB Only Consult Order Routine Consulting Provider: Rahel Mcginnis 12/22/18 11:45 Consult to Cardiology Routine Consulting Provider: Willie Saavedra Does the patient have a Microelectronics Assembler who follows them?: Yes Preferred Char Puller:: Raghav Nuñez Reason for Consultation: chf, aware Notified:: Service Spoke with:: Caridad Date Notified:: 12/22/18 Time Notified:: 11:49 Ordering Provider: PRESTON 12/25/18 09:21 Consult to Palliative Care Routine Consulting Provider: Paul Ambriz Reason for Consultation: Patient was on Hospice. She still wants Hospice but also requesting aggressive care. Please assist with goals of care. Notified:: Service Spoke with:: FALLON Date Notified:: 12/25/18 Time Notified:: 09:24 Ordering Provider: EDUARDO Brief History from admission: HPI as documented by the admitting physician: 68-year-old female with a past medical history significant for CHF, COPD on home oxygen between 3 and 3-1/2 L, coronary artery disease, atrial fibrillation anticoagulated on Eliquis, AAA, hypertension, hyperlipidemia and depression/ anxiety presents to the emergency department for shortness of breath. The patient reports that for the past 3 days she has had increasing lower extremity edema with accompanying shortness of breath. She describes a chest "ache" that is substernal and radiates around to her left breast. She denies any cough. No fever/chills. No abdominal pain. No nausea/vomiting/diarrhea. No focal neurologic deficits. Patient update on day of discharge: Patient reports she is feeling better today. She is adamant about going home today. She refused SNF placement. She also refused hospice services. She wants to go home with home health. DS: Summary 68-year-old female previously on hospice admitted for acute on chronic hypoxemic respiratory failure secondary to acute systolic CHF exacerbation. The patient was admitted and treated as noted below: Acute on chronic hypoxic respiratory failure secondary to acute systolic CHF exacerbation. -Patient treated with IV Lasix. Cardiology followed the patient. Previous 2D echo with EF of 25-30%. LVH -Continue Coreg and spironolactone. Added low-dose lisinopril -Heart failure diet discussed at length with the patient. She was offered a stress test by cardiology but she refused. She will be medically managed and follow-up outpatient with cardiology is recommended. AFIB w RVR - rate controlled. on Coreg, Cardizem and Eliquis HYPOKALEMIA resolved after replacement. COPD - cont pulm tx, stable. She is oxygen dependent at home. Will repeat home oxygen walk test and provide home oxygen if needed. CAD - cont asa daily eliquis, coreg daily. Discussed with cardiology. Consideration for stress test but patient was refusing. Currently no active complaints. Continue medical management. UTI - poa, ecoli MDRO - replaced walton, patient treated with aztreonam. DC on Macrobid for 3 more days. HTN -Continue Coreg, Lasix. Lisinopril. Hyperlipidemia: Resume statin, AAA - 4.7cm - cont bb, bp control, outpatient follow-up with vascular MORBID OBESITY bmi 47 - diet activity when stable DEPRESSION /ANXIETY continue home meds PANNICULITIIS - found on ct scan, no significant complaints, antibiotics as above. WOUNDs RLE - wound care followed the patient. Daily dressing changes. Time Spent with Patient Total time spent providing and/or coordinating discharge services: Greater than 30 minutes Quality: VTE Deep Vein Thrombosis/Pulmonary Embolism Present on Admission: No Exam Narrative Exam Narrative: GENERAL: Obese female in no acute distress CARDIOVASCULAR: Normal rate and regular rhythm without significant murmurs, gallops, or rubs. RESPIRATORY: Air movement is fair. Bibasilar rales. GASTROINTESTINAL: Abdomen obese, soft, non-tender, non-distended. Normal active bowel sounds MUSCULOSKELETAL: Bilateral lower extremities with 2+ edema PSYCH: Appropriate mood and affect. Insight is fair. Results Impressions ITS Impressions Abdomen/Pelvis CT 12/20/18 15:27 CONCLUSION: 1. 3 mm increase in the size of the infrarenal saccular abdominal aortic aneurysm when compared to July 2017, now measuring 4.7 cm in AP dimension. 2. Probable panniculitis. Stable fat-containing paraumbilical hernias. 3. A few scattered sigmoid diverticula without radiographic evidence of diverticulitis. Chest X-Ray 12/21/18 00:00 CONCLUSION: Diffuse increased interstitial markings. These are unchanged from the prior exam. This could represent underlying chronic interstitial disease versus recurrent edema. Venous Doppler Study 12/24/18 00:00 CONCLUSION: 1. The study is negative for lower extremity deep venous thrombosis. Discharge Plan Discharge Disposition Patient Disposition: W/Home Health Service Discharge Condition Condition: Fair Discharge Order Discharge Orders: Discharge Order (Routine); Ordered 12/26/18 Ordered By: Linh Ch Discharge Details Anticipated Discharge Date: 12/26/18 Physicians Team Primary Care Provider: Randi August Attending Provider: Linh Ch Other Providers: Rahel Mcginnis ; Willie Saavedra ; Paul Ambriz Rxs /Orders / Referrals /Forms Prescriptions: New spironolactone [Aldactone] 25 mg Tablet 25 mg PO BID@0900,1800 Qty: 60 RF: 0 lisinopril 5 mg Tablet 2.5 mg PO DAILY Qty: 30 RF: 0 furosemide [Lasix] 40 mg tablet 40 mg PO BID Qty: 60 RF: 0 diltiazem HCl [Cardizem CD] 120 mg capsule,extended release 24hr 120 mg PO DAILY Qty: 30 RF: 0 Continue albuterol sulfate 4 mg Tablet Extended Release 12 Hr 4 mg PO Q12H RF: 0 apixaban [Eliquis] 5 mg Tablet 5 mg PO BID RF: 0 Discontinued furosemide 20 mg Tablet 20 mg PO DAILY RF: 0 Ambulatory Orders / Order Sets / DME: Oxygen Tank (2 liter) (Routine) Location: Determined by Patient Ordered By: Linh Ch Referrals: aRndi August MD [Primary Care Provider] - See Instructions Discharge Interventions Interventions: Discharge Planning - Case Management Last Done: 12/26/18 12:59 Status ED Status: Left Department
--- NOTE | 2018-12-26 18:44 | P.DCO ---
Physical Therapy Order: Evaluate and treat, Improve ambulation and Strength and gait training Occupational Therapy Order: Evaluate and treat and Improve ADL Home Health Nursing Order: Medical education, Signs/symptoms of disease process, CHF education, Oxygen administration education, Medication education-adverse effect and Nursing assessment with vital signs Home Health Aide Order: To assist in: Bathing and personal care Resident Manager Order: To evaluate: Living conditions/environment and Support services Case Management Consult Case Management Consult-Home Health: Yes I have seen patient Eunice Swift on 12/26/18. My clinical findings support the need for the requested home health care services because: Patient has SOB, Deconditioned with increased weakness and Limited ability to care for self I certify that my clinical findings support that this patient is homebound because: Unsteady gait/balance and Poor cardiac reserve
--- NOTE | 2018-12-26 23:32 | P.PNCA ---
Subjective Interval history: No events overnight No complaints Back to baseline O2 States she feels better than she did for past few months Medications and Allergies Active Medications: Active Medications Acetaminophen (Tylenol) 650 mg PO Q4H PRN PRN Reason: Temp > 100.4 Hydrocodone Bitart/Acetaminophen ([place] 10/325) 1 tab PO Q4H PRN PRN Reason: pain 2-5 Last Admin: 12/26/18 23:00 Dose: 1 tab Hydrocodone Bitart/Acetaminophen ([place] 10/325) 1 tab PO Q4H PRN PRN Reason: pain of 6-10 Last Admin: 12/24/18 16:20 Dose: 1 tab Al Hydroxide/Mg Hydroxide (Milk Of Magnesia Liq) 30 ml PO Q12H PRN PRN Reason: Mild Constipation Albuterol (Duoneb Neb (Prn)) 1 ampul NEB Q4HR [facility] PRN PRN Reason: SHORTNESS OF BREATH Last Admin: 12/24/18 20:32 Dose: 1 ampul Apixaban (Eliquis) 5 mg PO BID [facility] Last Admin: 12/26/18 21:00 Dose: 5 mg Bisacodyl (Dulcolax Supp) 10 mg RECTAL DAILY PRN PRN Reason: SEVERE CONSITIPATION Diltiazem HCl (Cardizem) 30 mg PO QID [facility] Last Admin: 12/26/18 21:00 Dose: 30 mg Furosemide (Lasix Inj) 40 mg IV.PUSH BID@0900,1800 [facility] Last Admin: 12/26/18 17:27 Dose: 40 mg Aztreonam 1,000 mg/ Sodium (Chloride) 100 mls @ 200 mls/hr IV.SIG Q12H [facility] Last Infusion: 12/26/18 17:56 Dose: Infused Lactulose (Lactulose Liq) 30 ml PO DAILY PRN PRN Reason: SEVERE CONSITIPATION Lisinopril (Prinivil) 2.5 mg PO DAILY [facility] Last Admin: 12/26/18 09:23 Dose: 2.5 mg Ondansetron HCl (Zofran Inj) 4 mg IV.PUSH Q6H PRN PRN Reason: NAUSEA OR VOMITING Senna/Docusate Sodium (Stacie-Colace) 1 tab PO BID [facility] Last Admin: 12/26/18 21:01 Dose: Not Given Sennosides (Senokot) 17.2 mg PO Q12H PRN PRN Reason: Moderate Constipation Sodium Chloride (Ns Flush) 2 ml IV.FLUSH BID [facility] Last Admin: 12/26/18 21:00 Dose: 2 ml Sodium Chloride (Ns Flush) 2 ml IV.FLUSH PRN PRN PRN Reason: FLUSH AFTER USING IV ACCESS Spironolactone (Aldactone) 25 mg PO BID@0900,1800 [facility] Last Admin: 12/26/18 17:26 Dose: 25 mg Allergies Allergy/AdvReac Type Severity Reaction Status Date / Time penicillin G Allergy Severe THROAT Verified 12/20/18 18:17 CLOSES Home Medications Medication Instructions Recorded Confirmed Type albuterol sulfate 4 mg PO Q12H 12/20/18 12/20/18 History apixaban [Eliquis] 5 mg PO BID 12/20/18 12/20/18 History Physical Exam Vital signs: Vital Signs 12/26/18 00:00 12/26/18 04:00 12/26/18 08:00 Temperature 98.1 F 98.2 F Pulse Rate 101 H 96 H 96 H Respiratory Rate 16 16 Blood Pressure 135/49 L 139/51 L Pulse Oximetry 95 96 Pulse Oximetry [Resting on Room Air] Pulse Oximetry [Resting with Oxygen] 12/26/18 08:22 12/26/18 08:46 12/26/18 12:00 Temperature 99.0 F Pulse Rate 101 H 113 H Respiratory Rate 20 Blood Pressure 92/70 L Pulse Oximetry 92 L 94 L Pulse Oximetry [Resting on Room Air] Pulse Oximetry [Resting with Oxygen] 12/26/18 13:40 12/26/18 16:00 12/26/18 16:10 Temperature 97.4 F L Pulse Rate 102 H 88 Respiratory Rate 21 Blood Pressure 113/69 Pulse Oximetry 94 L Pulse Oximetry [Resting on Room Air] 88 L Pulse Oximetry [Resting with Oxygen] 92 L 12/26/18 17:15 12/26/18 17:16 12/26/18 20:09 Temperature 97.6 F 98.5 F Pulse Rate 98 H 104 H Respiratory Rate Blood Pressure 105/80 125/56 L Pulse Oximetry 92 L 92 L 93 L Pulse Oximetry [Resting on Room Air] Pulse Oximetry [Resting with Oxygen] 12/26/18 20:10 Temperature Pulse Rate Respiratory Rate Blood Pressure Pulse Oximetry 93 L Pulse Oximetry [Resting on Room Air] Pulse Oximetry [Resting with Oxygen] Intake & Output 12/26/18 12/26/18 12/27/18 06:59 18:59 06:59 Intake Total 340 / 340 100 / 100 Output Total 1500 / 1500 1750 / 1750 Balance -1160 / -1160 -1650 / -1650 Weight 116.2 kg Intake: IV 100 / 100 100 / 100 Azactam Inj 1,000 MG In NS Inj 100 / 100 100 / 100 100 ML @ 200 mls/hr IV.SIG Q12H [facility] Rx#:[id number] Oral 240 / 240 Output: Urine 1500 / 1500 1750 / 1750 Other: Date of Last Bowel Movement 12/25/18 12/26/18 # Bowel Movements 1 Narrative: GENERAL: NAD, AAOx3 SKIN: Warm and dry. HEAD: Atraumatic. Normocephalic. EYES: Pupils equal and round. No scleral icterus. No injection or drainage. ENT: No nasal bleeding or discharge. Mucous membranes pink and moist. NECK: Trachea midline. No JVD. CARDIOVASCULAR: Irregularly irregular RESPIRATORY: No accessory muscle use. Decreased breath sounds GASTROINTESTINAL: Abdomen soft, non-tender, nondistended. Hepatic and splenic margins not palpable. MUSCULOSKELETAL: Left lower extremity with erythema, more edematous than right NEUROLOGICAL: Awake and alert. No obvious cranial nerve deficits. Motor grossly within normal limits. Five out of 5 muscle strength in the arms and legs. Normal speech. PSYCHIATRIC: Appropriate mood and affect; insight and judgment normal. - Urinary Catheter Management Indwelling Urethral Catheter Cath placed during this visit: yes Reason for continuing: Hourly intake/output Insertion date: 12/22/18 Insertion time: 22:00 Results 12/23/18 08:17 12/25/18 04:00 Comprehensive Metabolic Panel 12/25/18 Range/Units 04:00 Sodium 138 (136-145) meq/L Potassium 3.7 (3.5-5.1) meq/L Chloride 96 L (98-107) meq/L Carbon Dioxide 36.1 H (21.0-32.0) meq/L BUN 26 H (7-18) mg/dL Creatinine 0.99 (0.50-1.00) mg/dL Calcium 7.9 L (8.5-10.1) mg/dL Albumin 2.5 L (3.4-5.0) g/dL Intake and Output 12/26/18 12/26/18 12/27/18 14:59 22:59 06:59 Intake Total 100 / 100 Output Total 1750 / 1750 Balance -1650 / -1650 Intake: IV 100 / 100 Azactam Inj 1,000 MG In NS Inj 100 / 100 100 ML @ 200 mls/hr IV.SIG Q12H [facility] Rx#:[id number] Output: Urine 1750 / 1750 Other: Date of Last Bowel Movement 12/26/18 # Bowel Movements 1 Assessment and Plan - Assessment (1) Congestive heart failure Code(s): I50.9 - Heart failure, unspecified Status: Acute Plan: Stable overnight. Good diuresis since admission. Echo pending. ? has some degree of aortic stenosis. No evidence for ACS. HR's in atrial fib slightly elevated. RECOMMEND await echo, continue IV furosemide, beta giovana. (2) Chronic atrial fibrillation Code(s): I48.2 - Chronic atrial fibrillation Status: Chronic Plan: Slightly increased HR's. Continues on apixaban. Recommend increase beta giovana dosing. (3) Atypical chest pain Code(s): R07.89 - Other chest pain Status: Acute Plan: No further atypical CP. Despite 4 days of fairly constant CP last week, CK negative for MS. (4) Hypertension Code(s): I10 - Essential (primary) hypertension Status: Chronic Plan: Stable. Normotensive. - Plan 1) Acute CHF Previous EF relatively normal Now reported as 25-30% Reviewed echocardiogram, not possible to determine EF from very technically difficult echo 2) Elevated troponin Secondary to CHF No signs of ACS 3) Left lower extremity erythema and more edema than right US negative for DVT 4) Afib Continue on Eliquis Rates elevated, would like to avoid BB therapy Plan to place on Cardizem for now 5) Discussed with her about her CHF She has not been in the hospital for 9 months, previously before this multiple admissions for CHF Consideration of stress testing due to question of lowered EF (albeit difficult to determine from echo) and heart failure She currently is under hospice care Discussed with her and palliative care No plan for further stress test or diagnostics per her wishes Plans on hospice consult at home for her and her who is also ill 6) Discussed with primary team Patient wants to be discharged home and pursue home hospice evaluation Back to baseline O2 use at home (1) Congestive heart failure Qualifiers: Heart failure type: unspecified Heart failure chronicity: acute Qualified Code(s): I50.9 - Heart failure, unspecified (4) Hypertension Qualifiers: Hypertension type: essential hypertension Qualified Code(s): I10 - Essential (primary) hypertension
[2018-12-27] MEDS: Lisinopril 5 MG Tablet PO SCH (08:00)
[2018-12-27] MEDS: Spironolactone 25 MG Tablet PO SCH (08:01)
[2018-12-27] MEDS: Senna/Docusate Sodium 8.6/50 MG Tablet PO SCH (08:01)
[2018-12-27] MEDS: dilTIAZem 30 MG Tablet PO SCH ×2 (08:01→13:51)
[2018-12-27 09:17] VITALS: TEMP 97
[2018-12-27 12:56] VITALS: BP 116/76; PULSE 82; RESP 22; O2SAT 95
--- NOTE | 2018-12-27 15:07 | P.PNIM ---
Subjective Interval history: Discharge held yesterday because oxygen was not delivered. This will be delivered today and the patient can go home. No other changes. Physical Exam Vital signs: Vital Signs 12/26/18 16:00 12/26/18 16:10 12/26/18 17:15 Temperature 97.6 F Pulse Rate 88 98 H Respiratory Rate Blood Pressure 105/80 Pulse Oximetry 92 L Pulse Oximetry [Resting on Room Air] 88 L Pulse Oximetry [Resting with Oxygen] 92 L 12/26/18 17:16 12/26/18 19:43 12/26/18 20:09 Temperature 98.5 F Pulse Rate 104 H Respiratory Rate Blood Pressure 125/56 L Pulse Oximetry 92 L 92 L 93 L Pulse Oximetry [Resting on Room Air] Pulse Oximetry [Resting with Oxygen] 12/26/18 20:10 12/27/18 00:00 12/27/18 04:00 Temperature 98.2 F Pulse Rate 89 97 H Respiratory Rate 20 Blood Pressure 110/63 Pulse Oximetry 93 L 93 L Pulse Oximetry [Resting on Room Air] Pulse Oximetry [Resting with Oxygen] 12/27/18 04:30 12/27/18 08:00 12/27/18 12:00 Temperature 97.7 F 97 F L 97 F L Pulse Rate 102 H 86 82 Respiratory Rate 20 20 22 Blood Pressure 107/55 L 107/71 116/76 Pulse Oximetry 93 L 96 95 Pulse Oximetry [Resting on Room Air] Pulse Oximetry [Resting with Oxygen] Intake & Output 12/26/18 12/27/18 12/27/18 18:59 06:59 18:59 Intake Total 100 / 100 580 / 580 Output Total 1750 / 1750 1700 / 1700 Balance -1650 / -1650 -1120 / -1120 Weight 114.6 kg Intake: IV 100 / 100 100 / 100 Azactam Inj 1,000 MG In NS Inj 100 / 100 100 / 100 100 ML @ 200 mls/hr IV.SIG Q12H JODI Rx#:[id number] Oral 480 / 480 Output: Urine 1750 / 1750 1700 / 1700 Other: Date of Last Bowel Movement 12/26/18 12/26/18 # Bowel Movements 1 0 Narrative: GENERAL: Obese female in no acute distress CARDIOVASCULAR: Normal rate and regular rhythm without significant murmurs, gallops, or rubs. RESPIRATORY: Air movement is fair. Bibasilar rales. GASTROINTESTINAL: Abdomen obese, soft, non-tender, non-distended. Normal active bowel sounds MUSCULOSKELETAL: Bilateral lower extremities with 2+ edema PSYCH: Appropriate mood and affect. Insight is fair. Urinary Catheter Management Indwelling Urethral Catheter: Cath placed during this visit: yes Reason for continuing: Hourly intake/output Insertion date: 12/22/18 Insertion time: 22:00 Results Labs CBC & Chem 7: 12/23/18 08:17 12/25/18 04:00 Assessment and Plan Plan 68-year-old female with: Acute on chronic hypoxic respiratory failure secondary to acute systolic CHF exacerbation. - Continue IV Lasix 40 mg twice daily. Cardiology following. Previous 2D echo with EF of 25-30%. LVH -Continue Coreg and spironolactone. low-dose lisinopril AFIB w RVR - rate controlled. on Coreg and Eliquis HYPOKALEMIA resolved after replacement. COPD - cont pulm tx, stable CAD - cont asa daily eliquis, coreg daily. Discussed with cardiology. Consideration for stress test but patient was refusing. Currently no active complaints. Continue medical management. UTI - poa, ecoli MDRO - replaced walton, continue aztreonam. DC on Macrobid HTN -continue Coreg, Lasix. Lisinopril. DYLSIPIDEMIA resume statin, AAA - 4.7cm - cont bb, bp control, outpatient follow-up with vascular MORBID OBESITY bmi 47 - diet, activity when stable DEPRESSION /ANXIETY resume home meds PANNICULITIIS - found on ct scan, no significant complaints, antibiotics as above. WOUNDs RLE - wound care followed the patient. dvt prophylaxis - On Eliquis Dispo: Okay to discharge home today once oxygen is received. Resume prior discharge orders from yesterday. Progress Note: Quality VTE Deep Vein Thrombosis/Pulmonary Embolism Present on Admission: No
== END 2018-12-27 14:27 | disposition home health service (06) | DRG 291 ==
LOC: NEPE 15:01 → NEDA 15:01 → NEPGCP 20:55 → N04 12-21 19:40
PROVIDERS: ADMIT Family Medicine; ATTEND Family Medicine
DX: I35.0 Nonrheumatic aortic (valve) stenosis; I42.9 Cardiomyopathy, unspecified; B96.20 Unspecified Escherichia coli [E. coli] as the cause of diseases classified elsewhere; I25.10 Atherosclerotic heart disease of native coronary artery without angina pectoris; R53.1 Weakness; Z68.42 Body mass index [BMI] 45.0-49.9, adult; I87.2 Venous insufficiency (chronic) (peripheral); X58.XXXA Exposure to other specified factors, initial encounter; Z79.01 Long term (current) use of anticoagulants; I50.23 Acute on chronic systolic (congestive) heart failure; F17.210 Nicotine dependence, cigarettes, uncomplicated; Z82.49 Family history of ischemic heart disease and other diseases of the circulatory system; N39.0 Urinary tract infection, site not specified; Z16.24 Resistance to multiple antibiotics; R07.89 Other chest pain; M79.3 Panniculitis, unspecified; J96.21 Acute and chronic respiratory failure with hypoxia; I11.0 Hypertensive heart disease with heart failure; Z99.81 Dependence on supplemental oxygen; E87.6 Hypokalemia; I48.2 Chronic atrial fibrillation; E78.5 Hyperlipidemia, unspecified; F41.8 Other specified anxiety disorders; E66.01 Morbid (severe) obesity due to excess calories; Z83.3 Family history of diabetes mellitus; I71.4 Abdominal aortic aneurysm, without rupture; Z88.0 Allergy status to penicillin; J44.9 Chronic obstructive pulmonary disease, unspecified; S81.801A Unspecified open wound, right lower leg, initial encounter
CPT/HCPCS: 71010; 71045; 74176; 80048; 80053; 80069; 81001; 82550; 83520; 83690; 83735; 83880; 84484; 85025; 85610; 85730; 87077; 87086; 87186; 90765; 90775; 93005; 93306; 93971; 94618; 94620; 94640; 94665; 96365; 96375; 97162; 97530; 99285; G0378; J1940; J1956; J2270; J2405